=== PATIENT | female | born 1950 | race Two or more races ===

== ENCOUNTER 2017-01-20 15:31 | Emergency (ER) | payer OTHER ==
[~2017-01-20] VITALS: Ht 160 cm; Wt 108.9 kg
[~2017-01-20 15:31] MED LIST: ATEN-60 PO; ENAL20TA70 PO; GLIMEPIRIDE PO; METF100097 PO; OMEPRAZOLE CAP 20MG PO; SIMV-13 PO
[2017-01-20 16:58] LABS: Albumin 3.4 g/dL (3.4-5.0); Anion Gap 9 (5-15); BUN/Creatinine Ratio 17.9; Blood Urea Nitrogen 25 mg/dL (7-18); Calcium 8.5 mg/dL (8.5-10.1); Carbon Dioxide 27 mmol/L (21-32); Chloride 105 mmol/L (98-107); GFR African American 49 mL/min; GFR Non-African American 40 mL/min; Glucose 145 mg/dL (74-106); Magnesium 1.8 mg/dL (1.6-2.6); Sodium 141 mmol/L (136-145)
[2017-01-20 17:06] LABS: Alkaline Phosphatase 70 U/L (45-117); Aspartate Aminotransferase 11 U/L (15-37); Bilirubin, Total 0.2 mg/dL (0.2-1.0); Total Protein 6.7 g/dL (6.4-8.2)
[2017-01-20 17:13] LABS: Basophils # (auto) 0.1 uL; Basophils % (auto) 0.6 % (0.0-2.0); Eosinophils # (auto) 0.4 uL; Eosinophils % (auto) 3.2 % (0.0-7.0); Lymphocytes # (auto) 2.3 uL; Mean Corpuscular Hemoglobin 29.6 pg (28.0-32.0); Mean Corpuscular Hgb Conc. 32.5 g/dL (32.0-36.0); Mean Corpuscular Volume 91.1 fL (80.0-100.0); Mean Platelet Volume 10.1 fL (7.4-10.4); Monocytes # (auto) 1.3 uL; Monocytes % (auto) 11.3 % (0.0-12.0); Neutrophils # (auto) 7.8 uL; Neutrophils % (auto) 65.9 % (37.0-80.0); Platelet Count (auto) 218 10^3/uL (140-450); Red Cell Distribution Width 14.5 % (11.6-16.0); White Blood Cell 11.9 10^3/uL (4.4-10.8)
[2017-01-20 18:00] LABS: Urine Bilirubin Negative (Negative); Urine Blood Negative /uL (Negative); Urine Color Yellow (Yellow); Urine Glucose Normal (Normal); Urine Ketone Negative (Negative); Urine Nitrite Negative (Negative); Urine RBC <1 /hpf (0 - 4); Urine Urobilinogen Normal (Negative); Urine pH 5.5 (5.0-8.0)
[2017-01-20 20:34] VITALS: BP 128/71
== END 2017-01-20 20:56 | disposition home or self-care (01) ==
LOC: EDBD 15:31 → ER 15:41
CPT/HCPCS: 36415; 71020; 80053; 81001; 83735; 84484; 85025; 93005; 94761

== ENCOUNTER 2020-08-01 22:03 | Emergency (ER) | payer OTHER ==
[~2020-08-01] VITALS: Ht 170.2 cm; Wt 131.5 kg
[~2020-08-01 22:03] MED LIST changes: -ENAL20TA70 PO; +ENAL20TA8 PO
[2020-08-02 01:18] LABS: Basophils # (auto) 0.1 10 ^3/uL (0-0.2); Basophils % (auto) 0.7 % (0.0-2.0); Eosinophils # (auto) 0.2 10 ^3/uL (0-0.8); Eosinophils % (auto) 1.8 % (0.0-7.0); Hematocrit 36.5 % (36.0-46.0); Hemoglobin 11.7 g/dL (12.2-16.2); Lymphocytes # (auto) 1.4 10 ^3/uL (0.4-5.4); Lymphocytes % (auto) 12.1 % (10.0-50.0); Mean Corpuscular Hemoglobin 30.1 pg (28.0-32.0); Mean Corpuscular Hgb Conc. 32.2 g/dL (32.0-36.0); Mean Corpuscular Volume 93.7 fL (80.0-100.0); Neutrophils # (auto) 8.8 10 ^3/uL (1.6-8.6); Neutrophils % (auto) 76.4 % (37.0-80.0); Nucleated Red Blood Cells % 0.1 %; Platelet Count (auto) 181 10^3/uL (140-450); Red Blood Cells 3.89 10^6/uL (4.0-5.20); Red Cell Distribution Width 15.2 % (11.8-14.3); White Blood Cell 11.6 10^3/uL (4.4-10.8)
[2020-08-02 01:37] LABS: Albumin 3.3 g/dL (3.4-5.0); Calcium 8.4 mg/dL (8.5-10.1); Potassium 4.9 mmol/L (3.5-5.1)
[2020-08-02 01:40] LABS: BUN/Creatinine Ratio 11.2
[2020-08-02 01:42] LABS: Bilirubin, Total 0.8 mg/dL (0.2-1.0); Total Protein 6.3 g/dL (6.4-8.2)
[2020-08-02 02:28] VITALS: BP 133/51
== END 2020-08-02 03:04 | disposition home or self-care (01) ==
LOC: EDBD 22:03 → ER 22:09
DX: E11.649 Type 2 diabetes mellitus with hypoglycemia without coma (principal); T38.3X5A Adverse effect of insulin and oral hypoglycemic [antidiabetic] drugs, initial encounter; K21.9 Gastro-esophageal reflux disease without esophagitis; E78.5 Hyperlipidemia, unspecified; I10 Essential (primary) hypertension; Y92.89 Other specified places as the place of occurrence of the external cause; Z90.49 Acquired absence of other specified parts of digestive tract; Z79.899 Other long term (current) drug therapy
CPT/HCPCS: 36415; 80053; 82010; 82962; 85025

== ENCOUNTER 2022-05-19 20:04 | Emergency (ER) | payer OTHER ==
[~2022-05-19] VITALS: Ht 162.6 cm; Wt 100.0 kg
[2022-05-19 20:22] VITALS: BP 169/79
[2022-05-20] MEDS ORDERED: ONDANSETRON ODT 4 MG TAB PO ONE (01:30)
[2022-05-20] MEDS ORDERED: HYDROcodone-ACET 5/325MG TAB PO ONE (01:30)
== END 2022-05-20 01:42 | disposition home or self-care (01) ==
LOC: EDBD 20:04 → ER 20:04
DX: M25.562 Pain in left knee (principal); J45.909 Unspecified asthma, uncomplicated; K21.9 Gastro-esophageal reflux disease without esophagitis; E78.5 Hyperlipidemia, unspecified; I10 Essential (primary) hypertension; Z88.1 Allergy status to other antibiotic agents; Z90.49 Acquired absence of other specified parts of digestive tract; W01.0XXA Fall on same level from slipping, tripping and stumbling without subsequent striking against object, initial encounter; Y93.01 Activity, walking, marching and hiking; Y92.098 Other place in other non-institutional residence as the place of occurrence of the external cause; Y99.8 Other external cause status
CPT/HCPCS: 73562; 73630; 99284; Q0162

== ENCOUNTER 2024-05-23 03:47 | Inpatient (IN) | payer BC, OTHER ==
[~2024-05-23] VITALS: Ht 162.6 cm; Wt 95.4 kg
[~2024-05-23 03:47] MED LIST changes: +ENAL1TAB48 PO; -ENAL20TA8 PO; -SIMV-13 PO; +SIMV40TA18 PO
[2024-05-23 04:15] VITALS: PULSE 140; RESP 19; O2SAT 95
[2024-05-23] MEDS: METOPROLOL TARTRATE 1MG/1ML-5ML VIAL IV SCH (04:35)
[2024-05-23 04:44] LABS: Urine Bacteria None Seen /hpf (None Seen)
[2024-05-23 04:54] LABS: Basophils # (auto) 0.1 10 ^3/uL (0-0.2); Basophils % (auto) 1.2 % (0.0-2.0); Eosinophils # (auto) 0.2 10 ^3/uL (0-0.8); Eosinophils % (auto) 1.9 % (0.0-7.0); Hematocrit 42.1 % (36.0-46.0); Hemoglobin 13.8 g/dL (12.2-16.2); Mean Corpuscular Hemoglobin 29.4 pg (28.0-32.0); Mean Corpuscular Hgb Conc. 32.7 g/dL (32.0-36.0); Mean Corpuscular Volume 89.8 fL (80.0-100.0); Monocytes # (auto) 1.1 10 ^3/uL (0-1.3); Monocytes % (auto) 9.2 % (0.0-12.0); Neutrophils # (auto) 8.2 10 ^3/uL (1.6-8.6); Neutrophils % (auto) 70.7 % (37.0-80.0); Platelet Count (auto) 194 10^3/uL (140-450); Red Blood Cells 4.69 10^6/uL (4.0-5.20); Red Cell Distribution Width 14.5 % (11.8-14.3); White Blood Cell 11.6 10^3/uL (4.4-10.8)
[2024-05-23 05:01] LABS: Urine Blood Negative /uL (Negative); Urine Clarity Clear (Clear); Urine Color Colorless (Yellow); Urine Protein, UAD Negative (Negative); Urine Urobilinogen Normal (Negative); Urine WBC 14 /hpf (0 - 5); Urine WBC Clumps PRESENT /hpf (None Seen); Urine pH 5.5 (5.0-9.0)
[2024-05-23 05:11] LABS: Albumin 3.8 g/dL (3.2-4.8); Alkaline Phosphatase 72 U/L (46-116); Aspartate Aminotransferase < 8 U/L (13-40); BUN/Creatinine Ratio 15.6 (10.0-20.0); Blood Urea Nitrogen 27 mg/dL (9-23); Calcium 8.7 mg/dL (8.7-10.4); Chloride 109 mmol/L (98-107); Glucose 131 mg/dL (74-106); Sodium 137 mmol/L (136-145)
[2024-05-23 05:12] LABS: Bilirubin, Total 0.6 mg/dL (0.2-1.0); INR 1.08 (0.9-1.15); Partial Thromboplastin Time 29.7 SEC (24.5-34.5); Prothrombin Time 11.4 sec (9.3-11.8); Total Protein 6.1 g/dL (5.7-8.2)
[2024-05-23 05:15] LABS: Alanine Aminotransferase < 9 U/L (7-40)
[2024-05-23 05:22] LABS: Anion Gap 9 (5-15); Carbon Dioxide 19 mmol/L (20-30)
[2024-05-23] MEDS: AMIODARONE BOLUS KIT 100 ML IV ONE (06:26)
[2024-05-23] MEDS ORDERED: NITROGLYCERIN 0.4 MG SL TAB SL PRN (06:30)
[2024-05-23] MEDS ORDERED: ONDANSETRON HCL 4 MG/2 ML VIAL IV PRN (06:30)
[2024-05-23] MEDS ORDERED: MORPHINE SULFATE INJ 2 MG/ml SYRG IV PRN (06:30)
[2024-05-23] MEDS: AMIODARONE 450mg/250ml AE 250 ML IV SCH ×2 (06:43→12:33)
[2024-05-23] MEDS: SOD CHL 0.45% 1,000 ML IV ONE (06:44)
[2024-05-23] MEDS ORDERED: DEXTROSE (50%) 50ML SYRG IV PRN (06:45)
[2024-05-23] MEDS: InsuLIN REG 1unit/0.01ml Soln (100units/ml) SC SCH (07:00)
[2024-05-23 07:10] VITALS: PULSE 106; RESP 14; O2SAT 98
[2024-05-23] MEDS: ACCU-CHEK COMFORT CURVE STRIP VI SCH (07:13)
[2024-05-23] MEDS: SODIUM CHLORIDE 0.9% 1,000 ML IV STA (10:07)
[2024-05-23 15:46] VITALS: PULSE 119; RESP 20; O2SAT 98
[2024-05-23 17:00] VITALS: BP 110/59; PULSE 49; RESP 18; TEMP 97.6; O2SAT 100
[2024-05-23] MEDS: RIVAROXABAN 20 MG TAB PO SCH (18:04)
[2024-05-23 20:00] VITALS: PULSE 59; RESP 18; O2SAT 98
[2024-05-23 21:00] VITALS: BP 100/51; PULSE 61; RESP 18; TEMP 98.5; O2SAT 96
[2024-05-24 00:51] VITALS: BP 100/42; PULSE 61; RESP 16; TEMP 98.4; O2SAT 96
[2024-05-24 04:48] VITALS: BP 110/47; PULSE 61; RESP 17; TEMP 98.5; O2SAT 96
[2024-05-24 06:25] LABS: Basophils # (auto) 0.1 10 ^3/uL (0-0.2); Basophils % (auto) 0.9 % (0.0-2.0); Eosinophils # (auto) 0.2 10 ^3/uL (0-0.8); Eosinophils % (auto) 3.1 % (0.0-7.0); Hematocrit 38.5 % (36.0-46.0); Hemoglobin 12.9 g/dL (12.2-16.2); Lymphocytes # (auto) 1.8 10 ^3/uL (0.4-5.4); Lymphocytes % (auto) 22.5 % (10.0-50.0); Mean Corpuscular Hemoglobin 29.4 pg (28.0-32.0); Mean Corpuscular Hgb Conc. 33.4 g/dL (32.0-36.0); Mean Corpuscular Volume 88.1 fL (80.0-100.0); Monocytes # (auto) 0.7 10 ^3/uL (0-1.3); Monocytes % (auto) 9.6 % (0.0-12.0); Neutrophils % (auto) 63.9 % (37.0-80.0); Platelet Count (auto) 171 10^3/uL (140-450); Red Blood Cells 4.37 10^6/uL (4.0-5.20); Red Cell Distribution Width 14.2 % (11.8-14.3); White Blood Cell 7.8 10^3/uL (4.4-10.8)
[2024-05-24 06:38] LABS: Albumin 3.4 g/dL (3.2-4.8); Alkaline Phosphatase 55 U/L (46-116); Anion Gap 5 (5-15); Aspartate Aminotransferase < 8 U/L (13-40); Bilirubin, Total 0.8 mg/dL (0.2-1.0); Blood Urea Nitrogen 30 mg/dL (9-23); Calcium 8.7 mg/dL (8.7-10.4); Carbon Dioxide 24 mmol/L (20-30); Chloride 109 mmol/L (98-107); Glucose 111 mg/dL (74-106); Potassium 4.2 mmol/L (3.5-5.1); Sodium 138 mmol/L (136-145); Total Protein 5.6 g/dL (5.7-8.2)
[2024-05-24 06:42] LABS: Alanine Aminotransferase < 9 U/L (7-40)
[2024-05-24 08:00] VITALS: PULSE 60
[2024-05-24 08:30] VITALS: BP 123/52; PULSE 63; RESP 19; TEMP 98.4; O2SAT 93
[2024-05-24] MEDS: AMIODARONE HCL 200 MG TAB PO SCH (09:37)
[2024-05-24] MEDS ORDERED: AMIO200T13 PO (11:38)
[2024-05-24 12:30] VITALS: BP_SYST 131; BP_SYST 157; BP_DIAS 54; BP_DIAS 91; PULSE 62; RESP 18; TEMP 98.9; O2SAT 95
== END 2024-05-24 14:32 | disposition home or self-care (01) | DRG 309 ==
LOC: EDBD 03:47 → ER 03:58 → TELE 06:30 → TELE-WESTW 15:12
PROVIDERS: ADMIT Internal Medicine; ATTEND Student in an Organized Health Care Education/Training Program
DX: I48.19 Other persistent atrial fibrillation (principal); I13.0 Hypertensive heart and chronic kidney disease with heart failure and stage 1 through stage 4 chronic kidney disease, or unspecified chronic kidney disease; E78.5 Hyperlipidemia, unspecified; I25.10 Atherosclerotic heart disease of native coronary artery without angina pectoris; E11.22 Type 2 diabetes mellitus with diabetic chronic kidney disease; E66.01 Morbid (severe) obesity due to excess calories; N18.9 Chronic kidney disease, unspecified; K21.9 Gastro-esophageal reflux disease without esophagitis; M10.9 Gout, unspecified; I49.9 Cardiac arrhythmia, unspecified; J44.9 Chronic obstructive pulmonary disease, unspecified; I50.9 Heart failure, unspecified; Z79.84 Long term (current) use of oral hypoglycemic drugs; Z88.1 Allergy status to other antibiotic agents; Z90.49 Acquired absence of other specified parts of digestive tract; I25.2 Old myocardial infarction; Z83.3 Family history of diabetes mellitus; Z82.49 Family history of ischemic heart disease and other diseases of the circulatory system; Z68.36 Body mass index [BMI] 36.0-36.9, adult; I95.9 Hypotension, unspecified
CPT/HCPCS: 36415; 71045; 76536; 80053; 81001; 82962; 83735; 83880; 84439; 84443; 84484; 85025; 85610; 85730; 93005; 93306; 96361; 96365; 96375; 99291; G0378; J1815

== ENCOUNTER 2025-03-26 08:56 | Inpatient (IN) | payer OTHER ==
[~2025-03-26] VITALS: Ht 160 cm; Wt 90.4 kg
[~2025-03-26 08:56] MED LIST changes: +AMIO200T13 PO
--- NOTE | 2025-03-26 09:10 | ECG ---
[facility] Test Date: 2025-03-26 Test Time: 09:02:11 Pat Name: LUH DAI Department: ED Room: Gender: F Fha Underwriter: : 1950 Requested By: LINDSEY PEDRAZA Order Number: [id number] Reading MD: Measurements Intervals [place] Rate: 140 P: -6 NE: 162 QRS: -17 QRSD: 140 T: -1 QT: 307 QTc: 469 Interpretive Statements Sinus tachycardia with irregular rate Right bundle branch block Please click the below link to view image of tracing.
--- NOTE | 2025-03-26 09:22 | ED.PDOC ---
HPI Comments 74-year-old female with PMHx OH, A-Fib, HLD, DM brought in by EMS presents with a chief complaint of chest pain x onset 0800 this morning. Patient states that her pain is localized to her right sternum, nonradiating, describes as heavy, and rates her pain a 7/10. Patient also states that she is feeling lightheaded. Patient was found to be in A-Fib RVR per EMS at rate of 104. EKG upon arrival to ER shows ST with rate of 140. Chief Complaint: Chest Pain Time Seen by MD: 09:16 Primary Care Provider: JERRYK Reviewed Notes: Medications, Allergies Allergies: Coded Allergies: Cephalexin (Verified Allergy, Unknown, 08/01/20) Home Meds Active Scripts Amiodarone HCl (Amiodarone HCl) 200 Mg Tab, 400 MG PO Q12HR for 30 Days, #120 TAB 1 Refill Take 400mg twice a day for 7 days, then 200mg twice a day thereafter. Prov:FLORENCIO GOMEZ DO 05/24/24 Reported Medications [Gubjfcjj15 Mg] (Atenolol) 25 MG TAB No Conflict Check, 25 MG PO DAILY 05/30/13 [Enalapril Malea20 Mg] (Enalapril Maleate) 20 MG TAB No Conflict Check, 20 MG PO DAILY 05/30/13 [Omeprazole Cap 20MG] No Conflict Check, 20 MG PO DAILY 05/30/13 Simvastatin (Simvastatin) 40 Mg Tab, 40 MG PO DAILY, 0 Refills 06/21/10 [Glimpeiride] No Conflict Check, 4 MG PO DAILY, 0 Refills 06/21/10 Metformin Hydrochloride (Fortamet) 1,000 Mg Tab, 1000 MG PO BID, 0 Refills 06/21/10 Information Source: Patient Mode of Arrival: EMS Severity: Moderate Timing: Hours Duration: Since onset Prehospital treatment: 12 Lead EKG, ASA, Visual Design Lead Location: Chest (R) Radiation: No Radiation Quality: Heavy Onset: At Rest Cardiac Risk Factors: Hyperlipidemia, Diabetes History of: OH Past Medical History PAST MEDICAL HISTORY: Anemia, Arthritis, Asthma, DM, GERD, Gout, High Lipids, HTN, OH Surgical History: Cholecystectomy CENTER MEDICAL SPECIALIST History: No Pertinent [employer]IST History Family History Family History: Family hx of DM, Family hx of heart fatuma, Family hx of HTN Social History Smoker: Non-Smoker Alcohol: Denies ETOH Use Drugs: Denies Drug Use Lives In: Home Constitutional: denies: chills, diaphoresis, fatigue, fever, malaise, sweats, weakness, others EENTM: denies: blurred vision, double vision, ear bleeding, ear discharge, ear drainage, ear pain, ear ringing, eye pain, eye redness, hearing loss, mouth pain, mouth swelling, nasal discharge, nose bleeding, nose congestion, nose pain, photophobia, tearing, throat pain, throat swelling, voice changes, others Respiratory: denies: cough, hemoptysis, orthopnea, SOB at rest, shortness of breath, SOB with excertion, stridor, wheezing, others Cardiovascular: reports: chest pain, lightheadedness; denies: dizzy spells, diaphoresis, Dyspnea on exertion, edema, irregular heart beat, left arm pain, palpitations, PND, syncope, others Gastrointestinal: denies: abdomen distended, abdominal pain, blood streaked bowels, constipated, diarrhea, dysphagia, difficulty swallowing, hematemesis, melena, nausea, poor appetite, poor fluid intake, rectal bleeding, rectal pain, vomiting, others Genitourinary: denies: abnormal vagina bleeding, burning, dyspareunia, dysuria, flank pain, frequency, hematuria, incontinence, pain, , vagina discharge, urgency, others Neurological: denies: dizziness, fainting, headache, left sided numbness, left sided weakness, numbness, paresthesia, pre-existing deficit, right sided numbness, right sided weakness, seizure, speech problems, tingling, tremors, we akness, others Musculoskeletal: denies: back pain, gout, joint pain, joint swelling, muscle pain, muscle stiffness, neck pain, others Integumetry: denies: bruises, change in color, change in hair/nails, dryness, laceration, lesions, lumps, rash, wounds, others Allergic/Immunocompromised: denies: Difficulty Healing, Frequent Infections, Hives, Itching, others Hematologic/Lymphatic: denies: anemia, blood clots, easy bleeding, easy bruising, swollen glands, others Endocrine: denies: excessive hunger, excessive sweating, excessive thirst, excessive urination, flushing, intolerance to cold, intolerance to heat, unexplained weight gain, unexplained weight loss, others Psychiatric: denies: anxiety, bipolar disorder, depression, hopeless, panic disorder, schizophrenia, sleepless, suicidal, others All Other Systems: Reviewed and Negative Physical Exam General Appearance: Moderate Distress, Normal HEENT: Normal ENT Inspection, Pharynx Normal, TMs Normal Neck: Full Range of Motion, Non-Tender, Normal, Normal Inspection Respiratory: Chest Non-Tender, Lungs Clear, No Accessory Muscle Use, No Respiratory Distress, Normal Breath Sounds Cardiovascular: Irregular, No Edema, No JVD, No Murmur, No Gallop, Normal Peripheral Pulses, Tachycardia Breast Exam: Deferred Gastrointestinal: No Organomegaly, Non Tender, No Pulsatile Mass, Normal Bowel Sounds, Soft Genitalia: Deferred Pelvic: Deferred Rectal: Deferred Extremities: No calf tenderness, Normal capillary refill, Normal inspection, Normal range of motion, Non-tender, No pedal edema Musculoskeletal : Apperance: Normal Neurologic: Alert, consulting marine engineer II-XII nml as Tested, No Motor Deficits, Normal Affect, Normal Mood, No Sensory Deficits Cerebellar Function: NOT DONE Reflexes: NOT DONE Skin: Dry, Normal Color, Warm Peripheral Pulses: 3+ Radial (R), 3+ Radial (L) Lymphatic: No Adenopathy EKG EKG : Pulse Rate (adult): 140 [place]: Normal Cardiac Rhythm: ST Block: None Hypertrophy: None ST: Normal Was a procedure done? Was a procedure done?: No CP Differential Dx Differential Diagnosis: A-fib, A-Flutter, Angina, Anxiety / Panic Attack, Atrial Dysrhythmia, Electrolyte Disorder X-Ray, Labs, Meds, VS Vital Signs Date Time Temp Pulse Resp B/P (MAP) Pulse Ox O2 Delivery O2 Flow Rate FiO2 03/26/25 12:00 121 03/26/25 12:00 123 21 140/63 (88) 97 03/26/25 11:34 120 03/26/25 10:01 130 03/26/25 09:30 120 20 98 Room Air* 0 21 03/26/25 09:22 140 03/26/25 09:20 98.2 120 19 94/56 (69) 97 98.2 03/26/25 09:02 140 03/26/25 09:02 98.9 140 16 146/93 (110) 98 98.9 Lab Test 03/26/25 10:37 03/26/25 09:38 03/26/25 09:25 Range/Units Troponin I High Sensitivity 6 6 </=34 ng/L White Blood Count 6.7 4.4-10.8 10^3/uL Red Blood Count 4.51 4.0-5.20 10^6/uL Hemoglobin 13.8 12.2-16.2 g/dL Hematocrit 40.8 36.0-46.0 % Mean Corpuscular Volume 90.5 80.0-100.0 fL Mean Corpuscular Hemoglobin 30.7 28.0-32.0 pg Mean Corpuscular Hemoglobin Concent 33.9 32.0-36.0 g/dL Red Cell Distribution Width 13.8 11.8-14.3 % Platelet Count 234 140-450 10^3/uL Mean Platelet Volume 9.2 6.9-10.8 fL Neutrophils (%) (Auto) 69.2 37.0-80.0 % Lymphocytes (%) (Auto) 17.4 10.0-50.0 % Monocytes (%) (Auto) 8.8 0.0-12.0 % Eosinophils (%) (Auto) 2.6 0.0-7.0 % Basophils (%) (Auto) 2.0 0.0-2.0 % Neutrophils # (Auto) 4.6 1.6-8.6 10 ^3/uL Lymphocytes # (Auto) 1.2 0.4-5.4 10 ^3/uL Monocytes # (Auto) 0.6 0-1.3 10 ^3/uL Eosinophils # (Auto) 0.2 0-0.8 10 ^3/uL Basophils # (Auto) 0.1 0-0.2 10 ^3/uL Nucleated Red Blood Cells 0.1 % Sodium Level 141 136-145 mmol/L Potassium Level 4.5 3.5-5.1 mmol/L Chloride Level 108 H 98-107 mmol/L Carbon Dioxide Level 23 20-31 mmol/L Anion Gap 10 5-15 Blood Urea Nitrogen 35 H 9-23 mg/dL Creatinine 1.85 H 0.550-1.02 mg/dL Glomerular Filtration Rate Calc 28 >90 mL/min BUN/Creatinine Ratio 18.9 10.0-20.0 Serum Glucose 171 H 74-106 mg/dL Hemoglobin A1c 6.8 H <5.7 % A1C Calcium Level 9.8 8.7-10.4 mg/dL Magnesium Level 2.2 1.6-2.6 mg/dL B-Type Natriuretic Peptide 112.44 0-100 pg/mL Triglycerides Level 288 H < 150 mg/dL Cholesterol Level 237 H < 200 mg/dL LDL Cholesterol 150 H < 100 mg/dL HDL Cholesterol 44 40-59 mg/dL Thyroid Stimulating Hormone (TSH) 1.21 0.55-4.78 uIU/mL Urine Color Light-yellow Yellow Urine Clarity Clear Clear Urine pH 5.5 5.0-9.0 Urine Specific [place] 1.012 1.001-1.035 Urine Protein Negative Negative Urine Ketones Negative Negative Urine Blood Negative Negative /uL Urine Nitrite Negative Negative Urine Bilirubin Negative Negative Urine Urobilinogen Normal Negative mg/dL Urine Leukocyte Esterase Trace Negative /uL Urine RBC <1 0 - 4 /hpf Urine Microscopic WBC 2 0-5 /HPF Urine Squamous Epithelial Cells Few <5 /hpf Urine Bacteria None seen None Seen /hpf Urine Glucose Normal Normal mg/dL Current Medications Medications (Trade) Dose Ordered Sig/Love Route Start Time Stop Time Status Last Admin Amiodarone HCl 100 ml @ 600 mls/hr ONCE ONCE IV 03/26/25 09:30 03/26/25 09:39 DC 03/26/25 10:25 Digoxin (Lanoxin Tablet) 0.25 mg ONCE ONCE PO 03/26/25 11:00 03/26/25 11:01 DC 03/26/25 11:34 Patient alert. Atrial fibrillation. Started amiodarone. Saturation pristine on room air. Blood sugar slightly elevated. Kidney function elevated. [facility]. Continue to monitor. Time of 1ST Reevaluation: 09:46 Reevaluation 1ST: Unchanged Patient Education/Counseling: Diagnosis, Treatment, Need For Follow Up Family Education/Counseling: No Family Present SEPSIS Sepsis Screen Date sepsis recognized/suspect: Mar 26, 2025 Time Sepsis recognized/suspect: 901 Recent Procedure: No On Antibiotic Therapy: No Respiratory Rate >20: No Heart Rate >90: Yes Temp<36 C (96.8 F) or >38.3 C: No SBP <90 or MAP <65 mmHG: No New Acute Mental Status Change: No Is the patient on CPAP, BIPAP,: No Physician Orders Electrocardigram (03/26/25 12:09) Chest Portable (03/26/25 09:27) Cardiac Diet-2gna,Lofat,Lochol (03/26/25 Lunch) Vital Signs Date Time Temp Pulse Resp B/P (MAP) Pulse Ox O2 Delivery O2 Flow Rate FiO2 03/26/25 12:00 121 03/26/25 12:00 123 21 140/63 (88) 97 03/26/25 11:34 120 03/26/25 10:01 130 03/26/25 09:30 120 20 98 Room Air* 0 21 03/26/25 09:22 140 03/26/25 09:20 98.2 120 19 94/56 (69) 97 98.2 03/26/25 09:02 140 03/26/25 09:02 98.9 140 16 146/93 (110) 98 98.9 Laboratory Tests Test 03/26/25 09:38 White Blood Count 6.7 10^3/uL (4.4-10.8) Medications Medications Dose Ordered Sig/Love Route Start Time Stop Time Status Last Admin Dose Admin Amiodarone HCl 100 ml @ 600 mls/hr ONCE ONCE IV 03/26/25 09:30 03/26/25 09:39 DC 03/26/25 10:25 Digoxin 0.25 mg ONCE ONCE PO 03/26/25 11:00 03/26/25 11:01 DC 03/26/25 11:34 Departure 1 Departure Time of Disposition: 10:48 Impression: Primary Impression: Atrial fibrillation Qualified Codes: I48.0 - Paroxysmal atrial fibrillation Additional Impressions: Chronic kidney disease stage 3 Diabetes uncontrolled Disposition: ADMITTED INPATIENT Admit to: Med Surg Condition: Guarded Critical Care Note Critical Care Time?: Yes (90 min-critical care time only) Critical care comment: Atrial fibrillation started amiodarone Stability Stability form required: No Heart Score Heart Score: Heart Score Response (Comments) Value History Slightly Suspicious 0 EKG Normal 0 Age >65 2 Risk Factors >3 or Hx ASHD 2 Troponin Normal limit 0 Total 4 I personally scribed for LINDSEY PEDRAZA MD ([email or web address]) on 03/26/25 at 09:22. Electronically submitted by Leo Holt [email or web address]). LINDSEY PEDRAZA MD Mar 26, 2025 09:22
[2025-03-26 09:30] VITALS: PULSE 120; RESP 20; O2SAT 98
[2025-03-26 09:37] LABS: Urine Bacteria None Seen /hpf (None Seen)
[2025-03-26 09:46] LABS: Urine Blood Negative /uL (Negative); Urine Clarity Clear (Clear); Urine Color Light-Yellow (Yellow); Urine Protein, UAD Negative (Negative); Urine Specific Gravity 1.012 (1.001-1.035); Urine Squamous Epithelial Cell FEW /hpf (<5); Urine Urobilinogen Normal (Negative); Urine WBC 2 /HPF (0-5); Urine pH 5.5 (5.0-9.0)
[2025-03-26 10:00] LABS: Basophils # (auto) 0.1 10 ^3/uL (0-0.2); Eosinophils # (auto) 0.2 10 ^3/uL (0-0.8); Eosinophils % (auto) 2.6 % (0.0-7.0); Hematocrit 40.8 % (36.0-46.0); Hemoglobin 13.8 g/dL (12.2-16.2); Lymphocytes # (auto) 1.2 10 ^3/uL (0.4-5.4); Lymphocytes % (auto) 17.4 % (10.0-50.0); Mean Corpuscular Hemoglobin 30.7 pg (28.0-32.0); Mean Corpuscular Hgb Conc. 33.9 g/dL (32.0-36.0); Mean Corpuscular Volume 90.5 fL (80.0-100.0); Monocytes # (auto) 0.6 10 ^3/uL (0-1.3); Monocytes % (auto) 8.8 % (0.0-12.0); Neutrophils # (auto) 4.6 10 ^3/uL (1.6-8.6); Neutrophils % (auto) 69.2 % (37.0-80.0); Nucleated Red Blood Cells % 0.1 %; Platelet Count (auto) 234 10^3/uL (140-450); Red Blood Cells 4.51 10^6/uL (4.0-5.20); Red Cell Distribution Width 13.8 % (11.8-14.3); White Blood Cell 6.7 10^3/uL (4.4-10.8)
--- NOTE | 2025-03-26 10:04 | ECG ---
[facility] Test Date: 2025-03-26 Test Time: 10:01:56 Pat Name: LUH DAI Department: ED Room: Gender: F Bag Washer: : 1950 Requested By: LINDSEY PEDRAZA Order Number: [id number] Reading MD: Measurements Intervals [place] Rate: 130 P: 0 MS: 0 QRS: 87 QRSD: 135 T: 48 QT: 355 QTc: 522 Interpretive Statements Atrial fibrillation Paired ventricular premature complexes Right bundle branch block Borderline ST elevation, lateral leads Please click the below link to view image of tracing.
--- NOTE | 2025-03-26 10:13 | DVH ---
AP portable chest CLINICAL INDICATION: sob FINDINGS: Heart size is enlarged. There are no infiltrates or effusions. IMPRESSION: 1. No acute cardiopulmonary pathology.
[2025-03-26] MEDS: AMIODARONE BOLUS KIT 100 ML IV ONE (10:25)
[2025-03-26 10:30] LABS: Potassium 4.5 mmol/L (3.5-5.1); Sodium 141 mmol/L (136-145)
[2025-03-26] MEDS: AMIODARONE 360mg/200mL PREMIX 200 ML IV ONE (10:30)
[2025-03-26 10:31] LABS: Chloride 108 mmol/L (98-107)
[2025-03-26 10:32] LABS: Calcium 9.8 mg/dL (8.7-10.4)
[2025-03-26 10:37] LABS: BUN/Creatinine Ratio 18.9 (10.0-20.0)
[2025-03-26 10:39] LABS: Blood Urea Nitrogen 35 mg/dL (9-23); Glucose 171 mg/dL (74-106)
[2025-03-26 10:48] LABS: Anion Gap 10 (5-15); Carbon Dioxide 23 mmol/L (20-31)
[2025-03-26] MEDS: DIGOXIN 0.125 MG TAB PO ONE (11:34)
[2025-03-26] MEDS ORDERED: ONDANSETRON HCL 4 MG/2 ML VIAL IV PRN (14:15)
[2025-03-26] MEDS ORDERED: ACETAMINOPHEN 325 MG TAB PO PRN (14:15)
[2025-03-26] MEDS ORDERED: MORPHINE SULFATE INJ 2 MG/ml SYRG IV PRN ×2 (14:15)
[2025-03-26] MEDS ORDERED: NITROGLYCERIN 0.4 MG SL TAB SL PRN (14:15)
[2025-03-26] MEDS ORDERED: HYDROcodone-ACET 5/325MG TAB PO PRN (14:15)
--- NOTE | 2025-03-26 14:15 | DVHHP2 ---
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 The chest pain is described as a heavy, pressure like sensation localized to the mid chest, nonradiating and associated with shortness of breath and heart palpitations. In the ED, she was found to be in atrial fibrillation with rapid ventricular response and was started on amiodarone drip. Repeat 12 lead ECG showed conversion to normal sinus rhythm with right bundle-branch block. She reports being currently on a DOAC and Multaq. Additionally, she recently underwent a nuclear test with her grocery store bagger, Dr. Beltran, which reportedly showed abnormal findings. Of note, she had a brief prior enrollment in hospice but is now designated as full code. Past Medical History Stated in HPI Past Surgical History Cholecystectomy Family History Reviewed, non-contributory to the management of this case. Past Social History The patient lives at home, denies smoking, alcohol or illicit drugs abuse. Review of Systems Constitutional: Yes: Malaise; No: Fever, Chills, Sweats, Weakness, Other Eyes: No: Pain, Vision change, Conjunctivae inflammation, Eyelid inflammation, Other, Redness ENT: No: Ear pain, Ear discharge, Nose pain, Nose discharge, Nose congestion, Mouth pain, Mouth swelling, Throat pain, Throat swelling, Other Respiratory: Shortness of breath, SOB with excertion; No: Cough, Dry, Wheezing, Hemoptysis, Pleuritic Pain, Sputum, Wheezing, Other Cardiovascular: Chest Pain; No: Palpitations, Orthopnea, Paroxysmal Noc. Dyspnea, Edema, Lt Headedness, Other Gastrointestinal: No: Nausea, Vomiting, Abdominal Pain, Diarrhea, Constipation, Melena, Hematochezia, Other Genitourinary: No Dysuria, No Frequency, No Incontinence, No Hematuria, No Retention, No Other Musculoskeletal: No: other, neck pain, shoulder pain, arm pain, back pain, hand pain, leg pain, foot pain Skin: No: Rash, Lesions, Jaundice, Bruising, Other Neurological: No: Weakness, Numbness, Incoordination, Change in speech, Confusi on, Seizures, Other Allergies: Coded Allergies: Cephalexin (Verified Allergy, Unknown, 08/01/20) Exam Vital Signs Vital Signs Date Time Temp Pulse Resp B/P (MAP) Pulse Ox O2 Delivery O2 Flow Rate FiO2 03/26/25 12:00 121 03/26/25 12:00 21 140/63 (88) 97 03/26/25 09:30 Room Air* 0 21 03/26/25 09:20 98.2 98.2 General Appearance: Alert, Oriented X3, Cooperative, No acute distress HEENT: Atraumatic, PERRLA, EOMI, Mucous membr. moist/pink Respiratory: Clear to auscultation, Normal air movement Cardiovascular: Regular rate, Normal S1, Normal S2, Other (Converted to sinus rhythm) Abdominal: Normal bowel sounds, Soft, No tenderness, No hepatospenomegaly Extremities: No clubbing, No cyanosis, No edema, Normal pulses Skin: No rashes Neuro: Normal gait, Strength at 5/5 X4 ext, Normal tone Psych/Mental Status: Mental status NL Labs/Xrays Labs Test 03/26/25 10:37 03/26/25 09:38 03/26/25 09:25 Range/Units Troponin I High Sensitivity 6 </=34 ng/L White Blood Count 6.7 4.4-10.8 10^3/uL Red Blood Count 4.51 4.0-5.20 10^6/uL Hemoglobin 13.8 12.2-16.2 g/dL Hematocrit 40.8 36.0-46.0 % Mean Corpuscular Volume 90.5 80.0-100.0 fL Mean Corpuscular Hemoglobin 30.7 28.0-32.0 pg Mean Corpuscular Hemoglobin Concent 33.9 32.0-36.0 g/dL Red Cell Distribution Width 13.8 11.8-14.3 % Platelet Count 234 140-450 10^3/uL Mean Platelet Volume 9.2 6.9-10.8 fL Neutrophils (%) (Auto) 69.2 37.0-80.0 % Lymphocytes (%) (Auto) 17.4 10.0-50.0 % Monocytes (%) (Auto) 8.8 0.0-12.0 % Eosinophils (%) (Auto) 2.6 0.0-7.0 % Basophils (%) (Auto) 2.0 0.0-2.0 % Neutrophils # (Auto) 4.6 1.6-8.6 10 ^3/uL Lymphocytes # (Auto) 1.2 0.4-5.4 10 ^3/uL Monocytes # (Auto) 0.6 0-1.3 10 ^3/uL Eosinophils # (Auto) 0.2 0-0.8 10 ^3/uL Basophils # (Auto) 0.1 0-0.2 10 ^3/uL Nucleated Red Blood Cells 0.1 % Sodium Level 141 136-145 mmol/L Potassium Level 4.5 3.5-5.1 mmol/L Chloride Level 108 H 98-107 mmol/L Carbon Dioxide Level 23 20-31 mmol/L Anion Gap 10 5-15 Blood Urea Nitrogen 35 H 9-23 mg/dL Creatinine 1.85 H 0.550-1.02 mg/dL Glomerular Filtration Rate Calc 28 >90 mL/min BUN/Creatinine Ratio 18.9 10.0-20.0 Serum Glucose 171 H 74-106 mg/dL Calcium Level 9.8 8.7-10.4 mg/dL Urine Color Light-yellow Yellow Urine Clarity Clear Clear Urine pH 5.5 5.0-9.0 Urine Specific [place] 1.012 1.001-1.035 Urine Protein Negative Negative Urine Ketones Negative Negative Urine Blood Negative Negative /uL Urine Nitrite Negative Negative Urine Bilirubin Negative Negative Urine Urobilinogen Normal Negative mg/dL Urine Leukocyte Esterase Trace Negative /uL Urine RBC <1 0 - 4 /hpf Urine Microscopic WBC 2 0-5 /HPF Urine Squamous Epithelial Cells Few <5 /hpf Urine Bacteria None seen None Seen /hpf Urine Glucose Normal Normal mg/dL PROCEDURE(s): CXRP - CHEST PORTABLE REASON: sob ORDER NUMBER(s): [id number], ACCESSION NUMBER(s): [id number] AP portable chest CLINICAL INDICATION: sob FINDINGS: Heart size is enlarged. There are no infiltrates or effusions. IMPRESSION: 1. No acute cardiopulmonary pathology. Assessment/Plan Assessment/Plan # Afib with RVR on Xarelto and Multaq, ?paraoxymal afib # ? hx of recent nuc test with abnormal findings with Dr Beltran # HFmrEF (EF 40-45% - 04/2024) Admit to telemetry unit Currently on amiodarone drip Heart rate in 60's noted converted to sinus rhythm, Repeated 12 EKG sinus rhythm 60 with RBBB Discontinuing amiodarone drip, transitioning to p.o. amnio. DC Multaq Cardiology consult Therapeutic Lovenox until seen by grocery store bagger Check electrolytes and replete as needed # REHAN on CKD 4 soft IVF Monitor Avoid nephrotoxins # hypertension Atenolol Monitor # diabetes type 2 Insulin sliding scale Check A1c # hyperlipidemia Statins lipid panel # obesity Lifestyle modification counseled # recent hospice revocation Currently full code DVT prophylaxis Medical plan discussed with patient and RN Plan discussed with: Patient My Orders Orders - CLINTON GARCIA Procedure Category Date Status Time Admit ADMIT 03/26/25 Transmitted 14:05 Code Status CODE 03/26/25 Transmitted 14:05 0.9% Ns 1000 Ml PHA 03/26/25 Transmitted 14:15 Hydrocodone-Acet PHA 03/26/25 Transmitted 5/325mg Tab ([place] 14:15 Ondansetron Hcl PHA 03/26/25 Transmitted (Zofran) 14:15 Fall Risk Precautions [facility] 03/26/[address] 14:05 Complete Blood Count LAB 03/27/25 Verified 04:00 Comprehensive LAB 03/27/25 Verified Metabolic Panel 04:00 Echo 2d Mode Cardiac US 03/26/25 Transmitted DOP 14:05 Condition: Fair [facility] 03/26/25 Transmitted 14:05 Acetaminophen Tablet PHA 03/26/25 Transmitted (Tylenol Tablet) 14:15 Morphine Sulfate PHA 03/26/25 Transmitted Injection 14:15 Nitroglycerin PHA 03/26/25 Transmitted Sublingual (Ntrostat 14:15 Morphine Sulfate PHA 03/26/25 Transmitted Injection 14:15 Stat Ekg For Chest [facility] 03/26/25 Transmitted Pain 14:05 Notify Md Of Changes [facility] 03/26/25 Transmitted From Base 14:05 Locket Maker For [facility] 03/26/25 Transmitted 24 Hours 14:05 Emergency Dysrhythmia [facility] 03/26/25 Transmitted Protocol 14:05 Rhythm Strips Once [facility] 03/26/25 Transmitted Every Shift 14:05 Oxygen By Nasal RT 03/26/25 Transmitted Cannula 14:05 * Cardiology Consult CONS 03/26/25 Transmitted 14:05 Date of Service: Mar 26, 2025 Billing Provider: CLINTON GARCIAP Common Visit Codes: [id number] INP/OBS CARE (HIGH) CLINTON GARCIA SHELL SORTER Mar 26, 2025 14:15
[2025-03-26] MEDS ORDERED: DEXTROSE (50%) 50ML SYRG IV PRN (14:45)
[2025-03-26] MEDS: AMIODARONE HCL 200 MG TAB PO SCH (14:52)
[2025-03-26] MEDS: SODIUM CHLORIDE 0.9% 1,000 ML IV SCH (14:53)
[2025-03-26 15:06] LABS: Magnesium 2.2 mg/dL (1.6-2.6)
[2025-03-26] MEDS: MAGNESIUM SULFATE 1GM/100ML 100 ML IV ONE (15:55)
[2025-03-26] MEDS: InsuLIN REG 1unit/0.01ml Soln (100units/ml) SC SCH (16:09)
[2025-03-26] MEDS: ACCU-CHEK COMFORT CURVE STRIP VI SCH (16:10)
[2025-03-26 19:40] VITALS: PULSE 52; RESP 18; O2SAT 98
--- NOTE | 2025-03-26 21:51 | DVHSR ---
APPROVED REPORT EXAM: Two-dimensional and M-mode echocardiogram with Doppler and color Doppler. Blood Pressure: 140/63 mmHg INDICATION AFIB with RVR RISK FACTORS Height: 63, Weight: 199 DIMENSIONS LVDd4.2 (3.8-5.7cm)LA (2D)4.4 (1.9-4.0cm)Aortic Root3.7 (2.0-3.7cm) LVDs2.7 (2.5-4.0cm)LA (MM) (1.9-4.0cm)Aortic Cusp Exc1.7 (1.5-2.0cm) EF (%) 67.0 (55-70%)Rt. Atrium3.3 (1.9-4.0cm)Asc. Aorta cm IVSd1.2 (0.7-1.1cm)RV (D) (1.8-2.4cm) PWd1.2 (0.7-1.1cm) Mitral Valve MitralMitral Stenosis E wave0.48m/sMV Mean GR.mmHg A wave0.78m/sMV Peak GR.mmHg E/A ratio0.62D MVAcm2 DECEL [id number] 1/2 [id number] IVRTmsDop MVA3.20cm2 Aortic Valve Aortic ValveAortic Stenosis V11.14m/Romana Mean GR.4mmHg V21.30m/Romana Peak GR.7mmHg LVOT Diameter1.7 (1.8-2.4cm)Doppler AVA1.99cm2 AI P 1/2 Iqgn337.46ms Pulmonic Valve V21.21m/s Tricuspid Valve TR Velocity1.86m/s [id number] Conclusion LV EF IS 67% AND IS NORMAL NORMAL RV FUNCTION AND SIZE MILD MVP NORMAL TV,PV AND AORTIC VALVE NO EFFUSION NORMAL RVSP AND IS 18 MM OF HG
[2025-03-26] MEDS: ENOXAPARIN SOD 100 MG/1 ML SYRINGE SC ONE (22:00)
[2025-03-26] MEDS: ATORVASTATIN 20 MG TAB PO SCH (22:00)
--- NOTE | 2025-03-26 23:43 | DVHINCON2 ---
Date of service: Mar 26, 2025 Referring Physician Alcon Reason for Consultation A-fib RVR History of Present Illness This is a 74-year-old female with a PMH of CA, A-Fib, HLD, DM who was brought in by EMS with complaints of chest pain since 0800 this morning. Patient states that her pain is localized to her right sternum, nonradiating, describes as heavy, and rates her pain a 7/10. Patient also states that she is feeling l ightheaded. Patient was found to be in A-Fib RVR on scene per EMS . EKG upon arrival to ED shows ST with rate of 140. Patient was started on amiodarone drip. Repeat 12 lead ECG showed conversion to normal sinus rhythm with right bundle- branch block. Chest x-ray showed NAD. Troponin is negative x2. BNP 112.44. Patient was admitted to the hospital. I am asked to consult on this patient. Past Medical History Stated in HPI Past Surgical History Cholecystectomy Family History: Cardiovascular disease G8 FATHER Allergies: Coded Allergies: Cephalexin (Verified Allergy, Unknown, 08/01/20) Home Meds Active Scripts Amiodarone HCl (Amiodarone HCl) 200 Mg Tab, 400 MG PO Q12HR for 30 Days, #120 TAB 1 Refill Take 400mg twice a day for 7 days, then 200mg twice a day thereafter. Prov:FLORENCIO GOMEZ DO 05/24/24 Reported Medications [[id number] Mg] (Atenolol) 25 MG TAB No Conflict Check, 25 MG PO DAILY 05/30/13 [Enalapril Malea20 Mg] (Enalapril Maleate) 20 MG TAB No Conflict Check, 20 MG PO DAILY 05/30/13 [Omeprazole Cap 20MG] No Conflict Check, 20 MG PO DAILY 05/30/13 Simvastatin (Simvastatin) 40 Mg Tab, 40 MG PO DAILY, 0 Refills 06/21/10 [Glimpeiride] No Conflict Check, 4 MG PO DAILY, 0 Refills 06/21/10 Metformin Hydrochloride (Fortamet) 1,000 Mg Tab, 1000 MG PO BID, 0 Refills 06/21/10 Current Medications Current Medications Medications (Trade) Dose Ordered Sig/Love Route PRN Reason Start Time Stop Time Status Last Admin Sodium Chloride 1,000 ml @ 60 mls/hr [id number] IV 03/26/25 14:15 03/26/25 14:53 Acetaminophen/ Hydrocodone Bitart ([place] 5/325MG Tab) 1 tab Q4HP PRN PO MODERATE PAIN (4-6 PAIN SCALE) 03/26/25 14:15 Ondansetron HCl (Zofran) 4 mg Q4HP PRN IV NAUSEA / VOMITING 03/26/25 14:15 Acetaminophen (Tylenol Tablet) 650 mg Q6HP PRN PO PAIN SCALE 1-3 OR TEMP>100.4 03/26/25 14:15 Morphine Sulfate 2 mg Q4HPRN PRN IV SEVERE PAIN (7-10 PAIN SCALE) 03/26/25 14:15 Nitroglycerin (Ntrostat Sublingual) 0.4 mg Q5MINP PRN SL FOR CHEST PAIN 03/26/25 14:15 Morphine Sulfate 2 mg Q30M PRN IV FOR CHEST PAIN 03/26/25 14:15 Amiodarone HCl (Cordarone Tablet) 400 mg Q12HR PO 03/26/25 14:30 03/26/25 14:52 Atenolol (Tenormin Tablet) 25 mg DAILY PO 03/27/25 10:00 Atorvastatin Calcium (Lipitor) 20 mg HS PO 03/26/25 22:00 Glimepiride (Amaryl Tablet) 4 mg DAILY@BREAKFAST PO 03/27/25 08:00 Omeprazole (Omeprazole/ Sodium Bicarbo 20-1680 Mg) 20 mg DAILY PO 03/27/25 10:00 Enoxaparin Sodium (Lovenox) 90 mg DAILY SC 03/27/25 10:00 Diagnostic Test (Pha) (Accu-Chek Comfort Curve T) 1 strip ACHS 03/26/25 17:00 03/26/25 16:10 Insulin Human Regular (InsuLIN R) ACHS SC 03/26/25 17:00 03/26/25 16:09 Dextrose 50 ml UD PRN IV Blood Sugar LESS THAN 60 03/26/25 14:45 Review of Systems Constitutional: Yes: Malaise; No: Fever, Chills, Sweats, Weakness, Other Eyes: No: Pain, Vision change, Conjunctivae inflammation, Eyelid inflammation, Other, Redness ENT: No: Ear pain, Ear discharge, Nose pain, Nose discharge, Nose congestion, Mouth pain, Mouth swelling, Throat pain, Throat swelling, Other Respiratory: Shortness of breath, SOB with excertion; No: Cough, Dry, Wheezing, Hemoptysis, Pleuritic Pain, Sputum, Wheezing, Other Cardiovascular: Chest Pain; No: Palpitations, Orthopnea, Paroxysmal Noc. Dyspnea, Edema, Lt Headedness, Other Gastrointestinal: No: Nausea, Vomiting, Abdominal Pain, Diarrhea, Constipation, Melena, Hematochezia, Other Genitourinary: No Dysuria, No Frequency, No Incontinence, No Hematuria, No Retention, No Other Musculoskeletal: No: other, neck pain, shoulder pain, arm pain, back pain, hand pain, leg pain, foot pain Skin: No: Rash, Lesions, Jaundice, Bruising, Other Neurological: No: Weakness, Numbness, Incoordination, Change in speech, Confusion, Seizures, Other Vital Signs Vital Signs Date Time Temp Pulse Resp B/P (MAP) Pulse Ox O2 Delivery O2 Flow Rate FiO2 03/26/25 19:54 98.2 52 17 138/68 (91) 94 98.2 03/26/25 09:30 Room Air* 0 21 Physical Exam GENERAL: Alert and oriented x 3. No acute distress. EYES: PERRL, EOMI. Anicteric. HENT: Moist mucous membranes. LUNGS: Clear to auscultation bilaterally. CARDIOVASCULAR: Regular rate and rhythm. ABDOMEN: Soft, non-tender and non-distended. EXTREMITIES: No edema. NEUROLOGIC: No focal neurological deficits. SKIN: Warm, dry. Labs/Diagnostic Data Labs Test 03/26/25 16:06 03/26/25 10:37 03/26/25 09:38 03/26/25 09:25 Range/Units POC Glucose 234 H 70-106 mg/dl Troponin I High Sensitivity 6 </=34 ng/L White Blood Count 6.7 4.4-10.8 10^3/uL Red Blood Count 4.51 4.0-5.20 10^6/uL Hemoglobin 13.8 12.2-16.2 g/dL Hematocrit 40.8 36.0-46.0 % Mean Corpuscular Volume 90.5 80.0-100.0 fL Mean Corpuscular Hemoglobin 30.7 28.0-32.0 pg Mean Corpuscular Hemoglobin Concent 33.9 32.0-36.0 g/dL Red Cell Distribution Width 13.8 11.8-14.3 % Platelet Count 234 140-450 10^3/uL Mean Platelet Volume 9.2 6.9-10.8 fL Neutrophils (%) (Auto) 69.2 37.0-80.0 % Lymphocytes (%) (Auto) 17.4 10.0-50.0 % Monocytes (%) (Auto) 8.8 0.0-12.0 % Eosinophils (%) (Auto) 2.6 0.0-7.0 % Basophils (%) (Auto) 2.0 0.0-2.0 % Neutrophils # (Auto) 4.6 1.6-8.6 10 ^3/uL Lymphocytes # (Auto) 1.2 0.4-5.4 10 ^3/uL Monocytes # (Auto) 0.6 0-1.3 10 ^3/uL Eosinophils # (Auto) 0.2 0-0.8 10 ^3/uL Basophils # (Auto) 0.1 0-0.2 10 ^3/uL Nucleated Red Blood Cells 0.1 % Sodium Level 141 136-145 mmol/L Potassium Level 4.5 3.5-5.1 mmol/L Chloride Level 108 H 98-107 mmol/L Carbon Dioxide Level 23 20-31 mmol/L Anion Gap 10 5-15 Blood Urea Nitrogen 35 H 9-23 mg/dL Creatinine 1.85 H 0.550-1.02 mg/dL Glomerular Filtration Rate Calc 28 >90 mL/min BUN/Creatinine Ratio 18.9 10.0-20.0 Serum Glucose 171 H 74-106 mg/dL Hemoglobin A1c 6.8 H <5.7 % A1C Calcium Level 9.8 8.7-10.4 mg/dL Magnesium Level 2.2 1.6-2.6 mg/dL B-Type Natriuretic Peptide 112.44 0-100 pg/mL Triglycerides Level 288 H < 150 mg/dL Cholesterol Level 237 H < 200 mg/dL LDL Cholesterol 150 H < 100 mg/dL HDL Cholesterol 44 40-59 mg/dL Thyroid Stimulating Hormone (TSH) 1.21 0.55-4.78 uIU/mL Urine Color Light-yellow Yellow Urine Clarity Clear Clear Urine pH 5.5 5.0-9.0 Urine Specific [place] 1.012 1.001-1.035 Urine Protein Negative Negative Urine Ketones Negative Negative Urine Blood Negative Negative /uL Urine Nitrite Negative Negative Urine Bilirubin Negative Negative Urine Urobilinogen Normal Negative mg/dL Urine Leukocyte Esterase Trace Negative /uL Urine RBC <1 0 - 4 /hpf Urine Microscopic WBC 2 0-5 /HPF Urine Squamous Epithelial Cells Few <5 /hpf Urine Bacteria None seen None Seen /hpf Urine Glucose Normal Normal mg/dL Assessment A fib with RVR. History of recent nuclear test with abnormal findings with Dr Beltran. 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 REHAN on CKD 4. Hypertension. Diabetes type 2. Hyperlipidemia. Obesity. Recent hospice revocation. Plan/Recommendation I agree with your ongoing assessment and care of plan. Telemetry reviewed. Echocardiogram. Morphine and [place] for pain management. Amiodarone. Atenolol. Lipitor. DVT prophylactics. Nitro SL. Additional plan as per the hospital course. A total of 45 minutes was spent reviewing the patient record, examining the patient, making a diagnostic and therapeutic plan, discussing this plan with medical personnel, following up on diagnostic studies and following the patient for clinical stability excluding any and all procedures. At least 50% of this time was spent in direct, [id number] contact. Plan discussed with: Patient RAGHAV TOBIAS MD Mar 26, 2025 21:42
[2025-03-26 23:49] VITALS: BP 123/57; PULSE 54; RESP 12; TEMP 97; O2SAT 94
[2025-03-27 01:00] VITALS: BP 115/58; PULSE 52; RESP 12; TEMP 97.7; O2SAT 90
[2025-03-27 05:00] VITALS: BP 124/61; PULSE 60; RESP 14; TEMP 97.6; O2SAT 95
[2025-03-27 06:43] LABS: Basophils # (auto) 0.1 10 ^3/uL (0-0.2); Basophils % (auto) 1.9 % (0.0-2.0); Eosinophils # (auto) 0.2 10 ^3/uL (0-0.8); Hemoglobin 12.4 g/dL (12.2-16.2); Lymphocytes # (auto) 1.5 10 ^3/uL (0.4-5.4); Lymphocytes % (auto) 25.7 % (10.0-50.0); Mean Corpuscular Hemoglobin 31.1 pg (28.0-32.0); Mean Corpuscular Hgb Conc. 34.3 g/dL (32.0-36.0); Mean Corpuscular Volume 90.8 fL (80.0-100.0); Monocytes # (auto) 0.7 10 ^3/uL (0-1.3); Monocytes % (auto) 11.3 % (0.0-12.0); Neutrophils # (auto) 3.4 10 ^3/uL (1.6-8.6); Neutrophils % (auto) 58.1 % (37.0-80.0); Nucleated Red Blood Cells % 0.1 %; Platelet Count (auto) 196 10^3/uL (140-450); Red Blood Cells 3.97 10^6/uL (4.0-5.20); White Blood Cell 5.8 10^3/uL (4.4-10.8)
[2025-03-27 06:57] LABS: Albumin 3.6 g/dL (3.2-4.8); Alkaline Phosphatase 54 U/L (46-116); Anion Gap 10 (5-15); Aspartate Aminotransferase 9 U/L (<34); Calcium 8.7 mg/dL (8.7-10.4); Carbon Dioxide 23 mmol/L (20-31); Potassium 4.1 mmol/L (3.5-5.1); Sodium 143 mmol/L (136-145)
[2025-03-27 06:58] LABS: Alanine Aminotransferase < 9 U/L (7-40); Bilirubin, Total 0.6 mg/dL (0.2-1.0); Blood Urea Nitrogen 35 mg/dL (9-23); Chloride 110 mmol/L (98-107); Glucose 117 mg/dL (74-106); Total Protein 5.4 g/dL (5.7-8.2)
[2025-03-27 08:00] VITALS: PULSE 56; PULSE 74; RESP 17; O2SAT 92
[2025-03-27] MEDS: GLIMEPIRIDE 2 MG TAB PO SCH (08:00)
[2025-03-27 08:58] VITALS: BP 124/55; PULSE 56; RESP 17; TEMP 97.5; O2SAT 92
[2025-03-27] MEDS ORDERED: ATENOLOL 25 MG TAB PO SCH (10:00)
[2025-03-27] MEDS ORDERED: OMEPRAZOLE-SOD BICARB 20 MG POWDER PO SCH (10:00)
[2025-03-27] MEDS: ENOXAPARIN SOD 100 MG/1 ML SYRINGE SC SCH (10:34)
[2025-03-27 13:00] VITALS: BP 127/55; PULSE 60; RESP 17; TEMP 98.4; O2SAT 92
[2025-03-27] MEDS ORDERED: AMIO200T33 PO (13:45)
--- NOTE | 2025-03-27 13:49 | DVHDS2 ---
Discharge Summary Date of Admission Mar 26, 2025 at 14:05 Date of Discharge: Mar 27, 2025 Admitting Diagnosis Atrial fibrillation with rapid ventricular rate Labs/Diagnostic Data: Laboratory Results Test 03/27/25 12:00 03/27/25 05:59 03/26/25 10:37 03/26/25 09:38 POC Glucose 95 mg/dl (70-106) White Blood Count 5.8 10^3/uL (4.4-10.8) Red Blood Count 3.97 10^6/uL (4.0-5.20) Hemoglobin 12.4 g/dL (12.2-16.2) Hematocrit 36.0 % (36.0-46.0) Mean Corpuscular Volume 90.8 fL (80.0-100.0) Mean Corpuscular Hemoglobin 31.1 pg (28.0-32.0) Mean Corpuscular Hemoglobin Concent 34.3 g/dL (32.0-36.0) Red Cell Distribution Width 14.0 % (11.8-14.3) Platelet Count 196 10^3/uL (140-450) Mean Platelet Volume 8.7 fL (6.9-10.8) Neutrophils (%) (Auto) 58.1 % (37.0-80.0) Lymphocytes (%) (Auto) 25.7 % (10.0-50.0) Monocytes (%) (Auto) 11.3 % (0.0-12.0) Eosinophils (%) (Auto) 3.0 % (0.0-7.0) Basophils (%) (Auto) 1.9 % (0.0-2.0) Neutrophils # (Auto) 3.4 10 ^3/uL (1.6-8.6) Lymphocytes # (Auto) 1.5 10 ^3/uL (0.4-5.4) Monocytes # (Auto) 0.7 10 ^3/uL (0-1.3) Eosinophils # (Auto) 0.2 10 ^3/uL (0-0.8) Basophils # (Auto) 0.1 10 ^3/uL (0-0.2) Nucleated Red Blood Cells 0.1 % Sodium Level 143 mmol/L (136-145) Potassium Level 4.1 mmol/L (3.5-5.1) Chloride Level 110 mmol/L (98-107) Carbon Dioxide Level 23 mmol/L (20-31) Anion Gap 10 (5-15) Blood Urea Nitrogen 35 mg/dL (9-23) Creatinine 1.67 mg/dL (0.550-1.02) Glomerular Filtration Rate Calc 32 mL/min (>90) BUN/Creatinine Ratio 21.0 (10.0-20.0) Serum Glucose 117 mg/dL (74-106) Calcium Level 8.7 mg/dL (8.7-10.4) Total Bilirubin 0.6 mg/dL (0.2-1.0) Aspartate Amino Transferase (AST) 9 U/L (<34) Alanine Aminotransferase (ALT) < 9 U/L (7-40) Alkaline Phosphatase 54 U/L (46-116) Total Protein 5.4 g/dL (5.7-8.2) Albumin 3.6 g/dL (3.2-4.8) Troponin I High Sensitivity 6 ng/L (</=34) Hemoglobin A1c 6.8 % A1C (<5.7) Magnesium Level 2.2 mg/dL (1.6-2.6) B-Type Natriuretic Peptide 112.44 pg/mL (0-100) Triglycerides Level 288 mg/dL (< 150) Cholesterol Level 237 mg/dL (< 200) LDL Cholesterol 150 mg/dL (< 100) HDL Cholesterol 44 mg/dL (40-59) Thyroid Stimulating Hormone (TSH) 1.21 uIU/mL (0.55-4.78) Test 03/26/25 09:25 Urine Color Light-yellow (Yellow) Urine Clarity Clear (Clear) Urine pH 5.5 (5.0-9.0) Urine Specific [place] 1.012 (1.001-1.035) Urine Protein Negative (Negative) Urine Ketones Negative (Negative) Urine Blood Negative /uL (Negative) Urine Nitrite Negative (Negative) Urine Bilirubin Negative (Negative) Urine Urobilinogen Normal mg/dL (Negative) Urine Leukocyte Esterase Trace /uL (Negative) Urine RBC <1 /hpf (0 - 4) Urine Microscopic WBC 2 /HPF (0-5) Urine Squamous Epithelial Cells Few /hpf (<5) Urine Bacteria None seen /hpf (None Seen) Urine Glucose Normal mg/dL (Normal) Other Laboratory Tests 03/27/25 05:59 Brief Hx & Hospital Course: History of Present Illness A 74-year-old female with past medical history of atrial fibrillation (?persistent vs paraoxymal), HFmrEF with LVEF 40-45%, (last documented in April 2024), hyperlipidemia, diabetes mellitus type 2, CAD, asthma, gout, hypertension, chronic kidney disease, and anemia presents to the emergency department with complaint of chest pain and palpitations that began earlier this morning while getting out of bed. The chest pain is described as a heavy, pressure like sensation localized to the mid chest, nonradiating and associated with shortness of breath and heart palpitations. In the ED, she was found to be in atrial fibrillation with rapid ventricular response and was started on amiodarone drip. Repeat 12 lead ECG showed conversion to normal sinus rhythm with right bundle-branch block. She reports being currently on a DOAC and Multaq. Additionally, she recently underwent a nuclear test with her line installer trolley, Dr. Beltran, which reportedly showed abnormal findings. Of note, she had a brief prior enrollment in hospice but is now designated as full code. Course of hospitalization: Patient converted to sinus rhythm after initiation of amiodarone drip. Echocardiogram was performed. Cardiology consultation was obtained. Patient is requesting to be discharged home. She does not want any further treatment while in the hospital at this time. Patient will be continue with Xarelto, as well as being given a prescription for amiodarone 200 mg p.o. daily. Patient was instructed to re-evaluate being on hospice given her current condition. Patient states that she already has disenrolled from hospice. She states she will follow up with her PCP, Dr. Garza in 1-2 weeks. Physical examination General: Alert and Oriented x3. No acute distress. Well-nourished. Eyes: EOMI. Anicteric. HENT: Moist mucous membranes. Lungs: Clear to auscultation bilaterally. No accessory muscle use. Cardiovascular: Regular rate and rhythm. No murmur. No JVD. Abdomen: Soft, non-tender and non-distended. No palpable masses. Extremities: No edema. Non-tender. Skin: No rashes or lesions. Warm. Neurologic: No focal neurological deficits. CN II-XII grossly intact, but not individually tested. Psychiatric: Cooperative. Appropriate mood and affect. Total time spent with patient discussing and formulating plan of care: 35 minutes. This medical document was created using an electronic medical record system with [employer] dictation system. Although this document has been carefully reviewed, there may still be some phonetic and typographical errors. These areas are purely typographical due to imperfections of the software programs, and do not reflect any compromise in the patient's medical care. Consults/Reason for consult Cardiology: Atrial fibrillation Condition at Discharge: Fair Final Diagnosis/Problems List Atrial Fibrillation with RVR Secondary diagnosis: Gout Obesity Primary hypertension Coronary artery disease Diabetes mellitus Discharge Disposition: Home Discharge Instruct/Medications Diet: Cardiac 2g Na,low cholest Activity: No Restrictions, As Tolerated Follow Up/Referral: PCP Dr. Garza in 1 to 2 weeks Medications: Continue Xarelto Amiodarone 200mg po daily 36 Discharge Statement: "Patient was advised to return to the ER or call 911 if any headaches, dizziness, shortness of breath, chest pain, abdominal pain, bleeding, fevers, or worsening of medical condition. Patient was counseled about treatment plan, medications, possible side effects, patientverbalized understanding. All questions were answered to the best of my ability. This discharge took greater then 30 minutes in planning, reviewing documentation, counseling the patient, and discussing with other team members." ASSESSMENT ASSESSMENT Assessment Atrial Fibrillation with RVR Date of Service: Mar 27, 2025 Billing Provider: REJI LOVE NP Common Visit Codes: 11280-VVL/OBS DISCH DAY >30min REJI LOVE NP Mar 27, 2025 13:49
--- NOTE | 2025-03-27 22:14 | DVHPN2 ---
Progress Note - Dictate Date Seen: Mar 27, 2025 Medical Necessity Reason Pt with a Central, PICC or Fol: No Subjective Patient was seen and evaluated in follow up. Echo shows an EF of 67%. Patient denies any cardiac symptoms. Patient is cardiac stable for discharge. Telemetry reviewed. vital signs Vital Sign Date Time Temp Pulse Resp B/P (MAP) Pulse Ox O2 Delivery O2 Flow Rate FiO2 03/27/25 13:00 98.4 60 17 127/55 (79) 92 98.4 03/27/25 08:00 Room Air* 0 21 Total Intake and Output 03/26/25 03/26/25 03/27/25 15:00 23:00 07:00 Intake Total 293.32 ml 340 ml 715.5 ml Balance 293.32 ml 340 ml 715.5 ml objective GENERAL: Alert and oriented x 3. No acute distress. EYES: PERRL, EOMI. Anicteric. HENT: Moist mucous membranes. LUNGS: Clear to auscultation bilaterally. CARDIOVASCULAR: Regular rate and rhythm. ABDOMEN: Soft, non-tender and non-distended. EXTREMITIES: No edema. NEUROLOGIC: No focal neurological deficits. SKIN: Warm, dry. laboratory and microbiology Laboratory Tests 03/27/25 05:59 Test 03/27/25 05:59 Range/Units Serum Glucose 117 H 74-106 mg/dL Problem List A fib with RVR. History of recent nuclear test with [facility] with [facility] REHAN on CKD 4. Hypertension. Diabetes type 2. Hyperlipidemia. Obesity. Recent hospice revocation. Assessment/Plan Continued all current supportive medical care. Morphine and [place] for pain management. Amiodarone. Atenolol. Lipitor. DVT prophylactics. Nitro SL. Additional plan as per the hospital course. Plan discussed with: Patient RAGHAV TOBIAS MD Mar 27, 2025 22:14
--- NOTE | 2025-03-28 09:53 | ECG ---
[facility] Test Date: 2025-03-26 Test Time: 14:09:14 Pat Name: LUH DAI Department: ER Room: 0283T Gender: F Clinical Laboratory Assistant: APRIL : 1950 Requested By: LINDSEY PEDRAZA Order Number: [id number] Reading MD: Measurements Intervals [place] Rate: 59 P: 50 WA: 152 QRS: -69 QRSD: 144 T: 34 QT: 456 QTc: 452 Interpretive Statements Sinus rhythm RBBB and LAFB Please click the below link to view image of tracing.
== END 2025-03-27 16:04 | disposition home or self-care (01) | DRG 308 ==
LOC: ER 08:56 → EDUNIT# 08:56 → EDBD 08:56 → OVERFLOW 14:05 → TELE-WESTW 23:13
PROVIDERS: ADMIT Nurse Practitioner Acute Care; ATTEND Nurse Practitioner Acute Care
DX: I48.91 Unspecified atrial fibrillation (principal); I50.23 Acute on chronic systolic (congestive) heart failure; I13.0 Hypertensive heart and chronic kidney disease with heart failure and stage 1 through stage 4 chronic kidney disease, or unspecified chronic kidney disease; N17.9 Acute kidney failure, unspecified; N18.4 Chronic kidney disease, stage 4 (severe); E78.5 Hyperlipidemia, unspecified; E66.9 Obesity, unspecified; E11.65 Type 2 diabetes mellitus with hyperglycemia; E11.22 Type 2 diabetes mellitus with diabetic chronic kidney disease; I25.10 Atherosclerotic heart disease of native coronary artery without angina pectoris; K21.9 Gastro-esophageal reflux disease without esophagitis; M10.9 Gout, unspecified; I45.10 Unspecified right bundle-branch block; J45.909 Unspecified asthma, uncomplicated; Z88.1 Allergy status to other antibiotic agents; Z79.84 Long term (current) use of oral hypoglycemic drugs; Z79.899 Other long term (current) drug therapy; Z83.3 Family history of diabetes mellitus; Z82.49 Family history of ischemic heart disease and other diseases of the circulatory system; Z90.49 Acquired absence of other specified parts of digestive tract; Z68.35 Body mass index [BMI] 35.0-35.9, adult
CPT/HCPCS: 36415; 71045; 80048; 80053; 80061; 81001; 82962; 83036; 83735; 83880; 84443; 84484; 85025; 87081; 93005; 93306; 96365; 99291; 99292; G0378; J1815

== ENCOUNTER 2025-09-09 00:23 | Emergency (ER) | payer OTHER ==
[~2025-09-09] VITALS: Ht 162.6 cm; Wt 90.7 kg
[~2025-09-09 00:23] MED LIST changes: +AMIO200T33 PO
--- NOTE | 2025-09-09 01:17 | ED.PDOC ---
SOB-HPI HPI Comments 75-year-old female who came to ER for flu-like symptoms. Patient states for the past 2 weeks she has been having flu-like symptoms, congestion, productive cough, shortness of breath, wheezing. No fever noted. Patient has already finished a course of antibiotics and cough medications, offered no relief. Chief Complaint: Flu Time Seen by MD: 01:16 Primary Care Provider: JERRYK Reviewed notes: Nurses Notes Information Source: Patient Mode of Arrival: EMS Severity: Moderate Past Medical History PAST MEDICAL HISTORY: AFIB, Anemia, Arthritis, Asthma, DM, GERD, Gout, High Lipids, HTN, [place] Surgical History: Cholecystectomy PROCESSING TECHNICIAN History: No Pertinent PROCESSING TECHNICIAN History Family History Family History: Family hx of DM, Family hx of heart fatuma, Family hx of HTN Social History Smoker: Non-Smoker Alcohol: Denies ETOH Use Drugs: Denies Drug Use Lives In: Home Constitutional: denies: chills, diaphoresis, fatigue, fever, malaise, sweats, weakness, others EENTM: reports: nose congestion; denies: blurred vision, double vision, ear bleeding, ear discharge, ear drainage, ear pain, ear ringing, eye pain, eye redness, hearing loss, mouth pain, mouth swelling, nasal discharge, nose bleeding, nose pain, photophobia, tearing, throat pain, throat swelling, voice changes, others Respiratory: reports: cough, SOB at rest, shortness of breath, wheezing; denies: hemoptysis, orthopnea, SOB with excertion, stridor, others Cardiovascular: denies: chest pain, dizzy spells, diaphoresis, Dyspnea on exertion, edema, irregular heart beat, left arm pain, lightheadedness, palpitations, PND, syncope, others Gastrointestinal: denies: abdomen distended, abdominal pain, blood streaked bowels, constipated, diarrhea, dysphagia, difficulty swallowing, hematemesis, melena, nausea, poor appetite, poor fluid intake, rectal bleeding, rectal pain, vomiting, others Genitourinary: denies: abnormal vagina bleeding, burning, dyspareunia, dysuria, flank pain, frequency, hematuria, incontinence, pain, , vagina discharge, urgency, others Neurological: denies: dizziness, fainting, headache, left sided numbness, left sided weakness, numbness, paresthesia, pre-existing deficit, right sided numbness, right sided weakness, seizure, speech problems, tingling, tremors, weakness, others Musculoskeletal: denies: back pain, gout, joint pain, joint swelling, muscle pain, muscle stiffness, neck pain, others Integumetry: denies: bruises, change in color, change in hair/nails, dryness, laceration, lesions, lumps, rash, wounds, others Allergic/Immunocompromised: denies: Difficulty Healing, Frequent Infections, Hi ves, Itching, others Hematologic/Lymphatic: denies: anemia, blood clots, easy bleeding, easy bruising, swollen glands, others Endocrine: denies: excessive hunger, excessive sweating, excessive thirst, excessive urination, flushing, intolerance to cold, intolerance to heat, unexplained weight gain, unexplained weight loss, others Psychiatric: denies: anxiety, bipolar disorder, depression, hopeless, panic disorder, schizophrenia, sleepless, suicidal, others Physical Exam General Appearance: No Apparent Distress, Normal HEENT: Normal ENT Inspection, Pharynx Normal, TMs Normal Neck: Full Range of Motion, Non-Tender, Normal, Normal Inspection Respiratory: Chest Non-Tender, Lungs Clear, No Accessory Muscle Use, No Respiratory Distress, Normal Breath Sounds Cardiovascular: No Edema, No JVD, No Murmur, No Gallop, Normal Peripheral P ulses, Regular Rate/Rhythm Breast Exam: Deferred Gastrointestinal: No Organomegaly, Non Tender, No Pulsatile Mass, Normal Bowel Sounds, Soft Genitalia: Deferred Pelvic: Deferred Rectal: Deferred Extremities: No calf tenderness, Normal capillary refill, Normal inspection, Normal range of motion, Non-tender, No pedal edema Musculoskeletal : Apperance: Normal Neurologic: Alert, disability insurance claim examiner II-XII nml as Tested, No Motor Deficits, Normal Affect, Normal Mood, No Sensory Deficits Cerebellar Function: Normal Reflexes: Normal Skin: Dry, Normal Color, Warm Lymphatic: No Adenopathy Was a procedure done? Was a procedure done?: No Differential Dx Differential Diagnosis: Asthma, Bronchitis, Pneumonia, Respiratory Distress, URI X-Ray, Labs, Meds, VS Vital Signs Date Time Temp Pulse Resp B/P (MAP) Pulse Ox O2 Delivery O2 Flow Rate FiO2 09/09/25 02:04 98.4 74 20 147/76 (99) 97 98.4 09/09/25 01:30 20 97 Room Air* 0 21 09/09/25 00:59 98.0 64 18 165/74 97 98.0 Lab Test 09/09/25 02:28 09/09/25 01:28 Range/Units Troponin I High Sensitivity 4 5 </=34 ng/L White Blood Count 13.9 H 4.4-10.8 10^3/uL Red Blood Count 4.54 4.0-5.20 10^6/uL Hemoglobin 13.2 12.2-16.2 g/dL Hematocrit 41.0 36.0-46.0 % Mean Corpuscular Volume 90.3 80.0-100.0 fL Mean Corpuscular Hemoglobin 29.1 28.0-32.0 pg Mean Corpuscular Hemoglobin Concent 32.2 32.0-36.0 g/dL Red Cell Distribution Width 14.9 H 11.8-14.3 % Platelet Count 231 140-450 10^3/uL Mean Platelet Volume 8.9 6.9-10.8 fL Neutrophils (%) (Auto) 65.8 37.0-80.0 % Lymphocytes (%) (Auto) 20.3 10.0-50.0 % Monocytes (%) (Auto) 11.1 0.0-12.0 % Eosinophils (%) (Auto) 1.6 0.0-7.0 % Basophils (%) (Auto) 1.2 0.0-2.0 % Neutrophils # (Auto) 9.2 H 1.6-8.6 10 ^3/uL Lymphocytes # (Auto) 2.8 0.4-5.4 10 ^3/uL Monocytes # (Auto) 1.5 H 0-1.3 10 ^3/uL Eosinophils # (Auto) 0.2 0-0.8 10 ^3/uL Basophils # (Auto) 0.2 0-0.2 10 ^3/uL Nucleated Red Blood Cells 0.0 % Sodium Level 145 136-145 mmol/L Potassium Level 4.2 3.5-5.1 mmol/L Chloride Level 107 98-107 mmol/L Carbon Dioxide Level 29 20-31 mmol/L Anion Gap 9 5-15 Blood Urea Nitrogen 50 H 9-23 mg/dL Creatinine 2.26 H 0.550-1.02 mg/dL Glomerular Filtration Rate Calc 22 >90 mL/min BUN/Creatinine Ratio 22.1 H 10.0-20.0 Serum Glucose 104 74-106 mg/dL Calcium Level 9.4 8.7-10.4 mg/dL Total Bilirubin 0.6 0.2-1.0 mg/dL Aspartate Amino Transferase (AST) 15 13-40 U/L Alanine Aminotransferase (ALT) 18 7-40 U/L Alkaline Phosphatase 82 46-116 U/L B-Type Natriuretic Peptide 24.16 0-100 pg/mL Total Protein 6.5 5.7-8.2 g/dL Albumin 4.2 3.2-4.8 g/dL Current Medications Medications (Trade) Dose Ordered Sig/Love Route Start Time Stop Time Status Last Admin Albuterol (Ventolin Medneb) 5 mg ONCE ONCE NEB 09/09/25 01:15 09/09/25 01:16 DC 09/09/25 01:30 Prednisone 40 mg ONCE ONCE PO 09/09/25 01:15 09/09/25 01:16 DC 09/09/25 02:03 Time of 1ST Reevaluation: 01:12 Reevaluation 1ST: Unchanged Patient Education/Counseling: Diagnosis, Treatment Family Education/Counseling: No Family Present SEPSIS Sepsis Screen Physician Orders Chest Portable (09/09/25 01:11) Electrocardigram (09/09/25 01:11) Vital Signs Date Time Temp Pulse Resp B/P (MAP) Pulse Ox O2 Delivery O2 Flow Rate FiO2 09/09/25 02:04 98.4 74 20 147/76 (99) 97 98.4 09/09/25 01:30 20 97 Room Air* 0 21 09/09/25 00:59 98.0 64 18 165/74 97 98.0 Laboratory Tests Test 09/09/25 01:28 White Blood Count 13.9 10^3/uL (4.4-10.8) H Departure 1 Departure Time of Disposition: 03:00 Impression: Primary Impression: URI (upper respiratory infection) Disposition: 01 HOME / SELF CARE / HOMELESS Condition: Stable e-Prescriptions Prednisone (Prednisone) 10 Mg [place] 10 MG PO BID for 5 Days, #10 PACK Prov: ASHLEY THAO MD 09/09/25 Azithromycin (Azithromycin) 500 Mg Tab 1 TAB PO DAILY for 5 Days, #5 TAB Prov: ASHLEY THAO MD 09/09/25 Albuterol Sulfate (Albuterol Sulfate) 0.083 % Neb 1 VIAL NEB Q4HPRN PRN, #50 VIAL Prov: ASHLEY THAO MD 09/09/25 Discharged With: Self Critical Care Note Critical Care Time?: No Stability Stability form required: No Heart Score Heart Score: Heart Score Response (Comments) Value History N/A 0 EKG N/A 0 Age N/A 0 Risk Factors N/A 0 Troponin N/A 0 Total 0 I personally scribed for ASHLEY THAO MD ([email or web address]) on 09/09/25 at 01:17. Electronically submitted by Dakota Aponte ([email or web address]). ASHLEY THAO MD Sep 09, 2025 01:17
[2025-09-09] MEDS: ALBUTEROL SULF 2.5 MG/0.5ML(0.5%) NEB SOLN NEB ONE (01:30)
[2025-09-09 01:43] LABS: Hematocrit 41.0 % (36.0-46.0); Hemoglobin 13.2 g/dL (12.2-16.2); Mean Corpuscular Hemoglobin 29.1 pg (28.0-32.0); Mean Corpuscular Volume 90.3 fL (80.0-100.0); Nucleated Red Blood Cells % 0.0 %
[2025-09-09] MEDS: predniSONE 20 MG TAB PO ONE (02:03)
[2025-09-09 02:04] VITALS: BP 147/76; PULSE 74; RESP 20; TEMP 98.4; O2SAT 97
[2025-09-09 02:05] LABS: Alanine Aminotransferase 18 U/L (7-40); Albumin 4.2 g/dL (3.2-4.8); Alkaline Phosphatase 82 U/L (46-116); Anion Gap 9 (5-15); BUN/Creatinine Ratio 22.1 (10.0-20.0); Bilirubin, Total 0.6 mg/dL (0.2-1.0); Calcium 9.4 mg/dL (8.7-10.4); Carbon Dioxide 29 mmol/L (20-31); Chloride 107 mmol/L (98-107); Glucose 104 mg/dL (74-106); Potassium 4.2 mmol/L (3.5-5.1); Sodium 145 mmol/L (136-145); Total Protein 6.5 g/dL (5.7-8.2)
[2025-09-09 02:08] LABS: Blood Urea Nitrogen 50 mg/dL (9-23)
--- NOTE | 2025-09-09 02:17 | DVH ---
CHEST RADIOGRAPH INDICATION: SOB TECHNIQUE: Single frontal view of the chest was obtained COMPARISON: XY CHEST PORTABLE on DOS: 03/26/25, XY CHEST PORTABLE on DOS: 05/23/24 FINDINGS: Lines and Tubes: None Lungs: Clear Pleura: No effusion. No pneumothorax. Cardiomediastinal contours: Unremarkable Bones: Unremarkable IMPRESSION: 1. No acute disease.
[2025-09-09] MEDS ORDERED: AZIT500T66 PO (02:41)
[2025-09-09] MEDS ORDERED: PRED1PAK9 PO (02:41)
[2025-09-09] MEDS ORDERED: ALBU0.084 NEB (02:41)
== END 2025-09-09 03:21 | disposition home or self-care (01) ==
LOC: EDBD 00:23 → EDUNIT# 00:23 → ER 00:23
DX: J06.9 Acute upper respiratory infection, unspecified (principal); I48.91 Unspecified atrial fibrillation; J45.909 Unspecified asthma, uncomplicated; E11.9 Type 2 diabetes mellitus without complications; I10 Essential (primary) hypertension; Z90.49 Acquired absence of other specified parts of digestive tract
CPT/HCPCS: 36415; 71045; 80053; 83880; 84484; 85025; 94640; 99284; J7512

== ENCOUNTER 2025-09-19 02:20 | Inpatient (IN) | payer OTHER ==
[~2025-09-19] VITALS: Ht 162.6 cm; Wt 95.3 kg
[~2025-09-19 02:20] MED LIST changes: +ALBU0.084 NEB; +AZIT500T66 PO; +PRED1PAK9 PO
--- NOTE | 2025-09-19 02:31 | ECG ---
[facility] Test Date: 2025-09-19 Test Time: 02:21:43 Pat Name: LUH DAI Department: [facility] ED Patient ID: [id number] Room: Gender: F Manager Application Development: renee : 1950 Requested By: EMERGENCY EMERGENCY Order Number: [id number] Reading MD: Measurements Intervals [place] Rate: 140 P: 0 ME: 0 QRS: -57 QRSD: 140 T: 34 QT: 336 QTc: 513 Interpretive Statements Atrial fibrillation Ventricular premature complex RBBB and LAFB Please click the below link to view image of tracing.
--- NOTE | 2025-09-19 03:24 | ED.PDOC ---
HPI Comments 75 year-old female, with a Hx of [place], Afib, and HTN, presents to the ED via EMS with a chief complaint of substernal chest pain as of 0030 this morning. Patient reports the chest pain is a 5/10, intermittent, non-radiating, described as "heavy", with associated symptoms of palpitations. Patient reports being admitted to [facility] recently for Bronchitis with cough. Patient has no further complaints otherwise. Patient denies symptoms of weakness, dizziness, SOB, or abdominal pain. REVIEW OF SYSTEMS: General: No fever, no chills, or fatigue HEENT: No sore throat, no earache, no congestion, no neck pain. Cardiac: + chest pain. No palpitations. Lungs: + shortness of breath, no cough. GI: No nausea, no vomiting, no diarrhea, no constipation, no abdominal pain : No dysuria, frequency, or urgency. No hematuria. Musculoskeletal: No joint pain , no joint swelling, no extremity edema. Skin: No rash, no itching. Neuro: No headache, no dizziness, no weakness (And as sated in HPI) PHYSICAL EXAM: General: Awake, alert and oriented. No acute distress. Skin: Skin in warm, dry and intact. Appropriate color for ethnicity. HEENT: The head is normocephalic and atraumatic. Conjunctivae are clear without exudates or hemorrhage. Sclera is non-icteric. Eyelids are normal in appearance without swelling or lesions. Oral mucosa is pink and moist Neck: The neck is supple with normal range of motion. No JVD. Cardiac: + Rapid rate/regular rhythm, irregular. No murmurs, gallops, or rubs are auscultated. Respiratory: No signs of respiratory distress. Lung sounds are clear in all lobes bilaterally without rales, rhonchi, or wheezes. Abdominal: Abdomen is soft, non-tender without distention, guarding or rigidity. Bowel sounds are present and normoactive in all four quadrants. Extremities: Lower extremities without edema. Neurological: The patient is awake, alert and oriented to person, place, and time with normal speech. Speech is clear. There is no facial asymmetry. Psychiatric: Appropriate mood and affect. Good judgement and insight. Chief Complaint: Chest Pain Time Seen by MD: 03:07 Primary Care Provider: UNK Reviewed Notes: Medications, Allergies Allergies: Coded Allergies: Cephalexin (Verified Allergy, Unknown, 08/01/20) Home Meds Active Scripts Prednisone (Prednisone) 10 Mg [place], 10 MG PO BID for 5 Days, #10 PACK Prov:ASHLEY THAO MD 09/09/25 Azithromycin (Azithromycin) 500 Mg Tab, 1 TAB PO DAILY for 5 Days, #5 TAB Prov:ASHLEY THAO MD 09/09/25 Albuterol Sulfate (Albuterol Sulfate) 0.083 % Neb, 1 VIAL NEB Q4HPRN PRN, #50 VIAL Prov:ASHLEY THAO MD 09/09/25 Amiodarone Hcl (Amiodarone Hcl) 200 Mg Tab, 1 TAB PO DAILY for 30 Days, #30 TAB 3 Refills Prov:REJI LOVE NP 03/27/25 Amiodarone HCl (Amiodarone HCl) 200 Mg Tab, 400 MG PO Q12HR for 30 Days, #120 TAB 1 Refill Take 400mg twice a day for 7 days, then 200mg twice a day thereafter. Prov:FLORENCIO GOMEZ DO 05/24/24 Reported Medications [Rrownvij15 Mg] (Atenolol) 25 MG TAB No Conflict Check, 25 MG PO DAILY 05/30/13 [Enalapril Malea20 Mg] (Enalapril Maleate) 20 MG TAB No Conflict Check, 20 MG PO DAILY 05/30/13 [Omeprazole Cap 20MG] No Conflict Check, 20 MG PO DAILY 05/30/13 Simvastatin (Simvastatin) 40 Mg Tab, 40 MG PO DAILY, 0 Refills 06/21/10 [Glimpeiride] No Conflict Check, 4 MG PO DAILY, 0 Refills 06/21/10 Metformin Hydrochloride (Fortamet) 1,000 Mg Tab, 1000 MG PO BID, 0 Refills 06/21/10 Information Source: Patient Mode of Arrival: EMS Severity: Moderate Timing: Hours Duration: Since onset Location: Substernal Radiation: No Radiation Quality: Heavy Associated Signs and Symptoms: Palpitations, Other (headache ) Past Medical History PAST MEDICAL HISTORY: AFIB, Anemia, Arthritis, Asthma, DM, GERD, Gout, High Lipids, HTN, [place] Surgical History: Cholecystectomy DIGITAL 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 Was a procedure done?: No CP Differential Dx Differential Diagnosis: A-fib, A-Flutter, Angina, Anxiety / Panic Attack Differential Diagnosis: CHF, HTN Essential Differential Diagnosis: Angina, Chest Wall Pain, Cholelithiasis, Gastritis, Pneumonia X-Ray, Labs, Meds, VS Vital Signs Date Time Temp Pulse Resp B/P (MAP) Pulse Ox O2 Delivery O2 Flow Rate FiO2 09/19/25 02:30 98.0 130 18 124/90 94 98.0 09/19/25 02:21 140 Time of 1ST Reevaluation: 03:41 Reevaluation 1ST: Unchanged Patient Education/Counseling: Diagnosis, Treatment, Need For Follow Up Family Education/Counseling: No Family Present SEPSIS Sepsis Screen Date sepsis recognized/suspect: Sep 19, 2025 Time Sepsis recognized/suspect: 0233 Recent Procedure: No On Antibiotic Therapy: No Respiratory Rate >20: No Heart Rate >90: Yes Temp<36 C (96.8 F) or >38.3 C: No SBP <90 or MAP <65 mmHG: No New Acute Mental Status Change: No Is the patient on CPAP, BIPAP,: No Physician Orders Electrocardigram (09/19/25 03:27) Electrocardigram (09/19/25 05:27) Vital Signs Date Time Temp Pulse Resp B/P (MAP) Pulse Ox O2 Delivery O2 Flow Rate FiO2 09/19/25 02:30 98.0 130 18 124/90 94 98.0 09/19/25 02:21 140 Critical Care Note Critical Care Time?: Yes (30 min-critical care time only) Stability Stability form required: No Heart Score Heart Score: Heart Score Response (Comments) Value History Moderate Suspicious 1 EKG Normal 0 Age >65 2 Risk Factors 1 or 2 risk factors 1 Troponin N/A 0 Total 4 I personally scribed for YARI VASQUES MD ([email or web address]) on 09/19/25 at 03:24. Electronically submitted by Vanessa BundyAJAX Street). YARI VASQUES MD Sep 19, 2025 03:24
[2025-09-19 03:27] LABS: Hematocrit 39.4 % (36.0-46.0); Hemoglobin 12.8 g/dL (12.2-16.2); Mean Corpuscular Hemoglobin 29.1 pg (28.0-32.0); Mean Corpuscular Volume 89.5 fL (80.0-100.0); Nucleated Red Blood Cells % 0.1 %
[2025-09-19 03:30] VITALS: RESP 15; O2SAT 97
[2025-09-19] MEDS: MORPHINE SULFATE INJ 2 MG/ml SYRG IV ONE (03:30)
[2025-09-19] MEDS: dilTIAZem 25 MG/5 ML VIAL IV ONE ×2 (03:35→05:02)
[2025-09-19 03:38] LABS: Anion Gap 5 (5-15); Carbon Dioxide 30 mmol/L (20-31); Chloride 106 mmol/L (98-107); Potassium 4.5 mmol/L (3.5-5.1); Sodium 141 mmol/L (136-145)
[2025-09-19 03:39] LABS: Calcium 9.4 mg/dL (8.7-10.4)
[2025-09-19 03:44] LABS: BUN/Creatinine Ratio 16.1 (10.0-20.0)
[2025-09-19 03:48] LABS: Blood Urea Nitrogen 29 mg/dL (9-23); Glucose 65 mg/dL (74-106)
[2025-09-19] MEDS: SODIUM CHLORIDE 0.9% 1,000 ML IV ONE (04:13)
--- NOTE | 2025-09-19 05:27 | DVH ---
CHEST RADIOGRAPH INDICATION: cp TECHNIQUE: Single frontal view of the chest was obtained COMPARISON: XY CHEST PORTABLE on DOS: 09/09/25, XY CHEST PORTABLE on DOS: 03/26/25, XY CHEST PORTABLE on DOS: 05/23/24 FINDINGS: Lines and Tubes: None Lungs: Mild diffuse increased prominence of the pulmonary vasculature. No evidence of focal consolidation. Pleura: No effusion. No pneumothorax. Cardiomediastinal contours: Unremarkable Bones: Unremarkable IMPRESSION: 1. Mild diffuse increased prominence of the pulmonary vasculature.
[2025-09-19] MEDS ORDERED: DEXTROSE (50%) 50ML SYRG IV PRN (06:30)
[2025-09-19] MEDS ORDERED: ONDANSETRON HCL 4 MG/2 ML VIAL IV PRN (06:30)
[2025-09-19] MEDS ORDERED: NITROGLYCERIN 0.4 MG SL TAB SL PRN (06:30)
--- NOTE | 2025-09-19 06:40 | DVHHP2 ---
Admitting Diagnosis: Afib with RVR History of Present Illness HPI 75 y.o. female with Afib, CAD, HTN, DM, obesity was brought to the ER c/o non- radiating substernal pressure-like chest pain with palpitations. In the ER her EKG showed Afib with RVR anf the the patient was given Diltiazem IV. Patient denied other symptoms. She informed that she recently had bronchitis. Home Meds Active Scripts Prednisone (Prednisone) 10 Mg [place], 10 MG PO BID for 5 Days, #10 PACK Prov:ASHLEY THAO MD 09/09/25 Azithromycin (Azithromycin) 500 Mg Tab, 1 TAB PO DAILY for 5 Days, #5 TAB Prov:ASHLEY THAO MD 09/09/25 Albuterol Sulfate (Albuterol Sulfate) 0.083 % Neb, 1 VIAL NEB Q4HPRN PRN, #50 VIAL Prov:ASHLEY THAO MD 09/09/25 Amiodarone Hcl (Amiodarone Hcl) 200 Mg Tab, 1 TAB PO DAILY for 30 Days, #30 TAB 3 Refills Prov:REJI LOVE MANAGER LOCAL 03/27/25 Amiodarone HCl (Amiodarone HCl) 200 Mg Tab, 400 MG PO Q12HR for 30 Days, #120 TAB 1 Refill Take 400mg twice a day for 7 days, then 200mg twice a day thereafter. Prov:FLORENCIO GOMEZ DO 05/24/24 Reported Medications [Gznbolus80 Mg] (Atenolol) 25 MG TAB No Conflict Check, 25 MG PO DAILY 05/30/13 [Enalapril Malea20 Mg] (Enalapril Maleate) 20 MG TAB No Conflict Check, 20 MG PO DAILY 05/30/13 [Omeprazole Cap 20MG] No Conflict Check, 20 MG PO DAILY 05/30/13 Simvastatin (Simvastatin) 40 Mg Tab, 40 MG PO DAILY, 0 Refills 06/21/10 [Glimpeiride] No Conflict Check, 4 MG PO DAILY, 0 Refills 06/21/10 Metformin Hydrochloride (Fortamet) 1,000 Mg Tab, 1000 MG PO BID, 0 Refills 06/21/10 Past Medical History Cardiac: AFIB, CAD, HTN, MD Endocrine: NIDDM Patient Family History: Cardiovascular disease G8 FATHER Review of Systems Cardiovascular: Chest Pain, Palpitations H&P Exam Vital Signs Vital Signs Date Time Temp Pulse Resp B/P (MAP) Pulse Ox O2 Delivery O2 Flow Rate FiO2 09/19/25 06:01 107/56 09/19/25 06:00 123 12 97 09/19/25 03:30 Nasal Cannula* 2 28 09/19/25 02:30 98.0 98.0 General Appeara: Obese Head Exam: Normal inspection Neck Exam: Normal inspection Eye Exam: bilateral eye PERRL, bilateral eye EOMI Pulmonary/Respiratory: Crackles Cardiovascular/Chest: Tachycardia Abdominal Exam: Normal bowel sounds Ankle Exam: bilateral ankle Swelling Neuro/Mental St: Alert, Oriented SEPSIS Sepsis Screen Date sepsis recognized/suspect: Sep 19, 2025 Time Sepsis recognized/suspect: 329 Recent Procedure: No On Antibiotic Therapy: No Respiratory Rate >20: No Heart Rate >90: Yes Temp<36 C (96.8 F) or >38.3 C: No SBP <90 or MAP <65 mmHG: No New Acute Mental Status Change: No Is the patient on CPAP, BIPAP,: No Physician Orders Electrocardigram (09/19/25 03:27) Electrocardigram (09/19/25 05:27) Chest Xray 1 View (09/19/25 03:18) Vital Signs Q1HR (09/19/25 03:18) Saline Lock (09/19/25 03:18) Chief Librarian Branch (09/19/25 ) Diltiazem 125mg/125ml Bag Kit (Cardizem) (09/19/25 04:45) Troponin-I Hs (09/19/25 06:22) Troponin-I Hs (09/19/25 08:22) Admit (09/19/25 06:22) * Cardiology Consult (09/19/25 06:22) Complete Blood Count (09/20/25 06:00) Comprehensive Metabolic Panel (09/20/25 06:00) Echo 2d Mode Cardiac Dop (09/19/25 06:22) Nitroglycerin Sublingual (Ntrostat Subli (09/19/25 06:30) Morphine Sulfate Injection (09/19/25 06:30) Stat Ekg For Chest Pain (09/19/25 06:22) Notify Of Changes From Base (09/19/25 06:22) Circuit Breaker Mechanic For 24 Hours (09/19/25 06:22) Emergency Dysrhythmia Protocol (09/19/25 06:22) Rhythm Strips Once Every Shift (09/19/25 06:22) Oxygen By Nasal Cannula (09/19/25 06:22) Ondansetron Hcl (Zofran) (09/19/25 06:30) Morphine Sulfate Injection (09/19/25 06:30) Glucose Blood (Accu-Chek Comfort Curve T (09/19/25 07:00) Mild Sliding Scale (09/19/25 07:00) Dextrose 50% Syringe (09/19/25 06:30) Vital Signs Date Time Temp Pulse Resp B/P (MAP) Pulse Ox O2 Delivery O2 Flow Rate FiO2 09/19/25 06:01 107/56 09/19/25 06:00 123 12 107/56 (73) 97 09/19/25 05:10 93 15 97 09/19/25 05:05 131 14 106/49 (68) 98 09/19/25 04:00 92 12 107/55 (72) 97 09/19/25 03:30 15 97 Nasal Cannula* 2 28 09/19/25 03:24 140 09/19/25 03:06 137 15 128/108 (115) 91 09/19/25 02:30 98.0 130 18 124/90 94 98.0 09/19/25 02:21 140 Laboratory Tests Test 09/19/25 02:30 White Blood Count 10.1 10^3/uL (4.4-10.8) Medications Medications Dose Ordered Sig/Love Route Start Time Stop Time Status Last Admin Dose Admin Diltiazem HCl 10 mg ONCE ONCE IV 09/19/25 04:45 09/19/25 04:46 DC 09/19/25 05:02 10 MG Diltiazem HCl 15 mg ONCE ONCE IV 09/19/25 03:30 09/19/25 03:32 DC 09/19/25 03:35 15 MG Diltiazem HCl 125 ml @ 5 mls/hr Q24H ONCE IV 09/19/25 04:45 09/20/25 04:44 09/19/25 06:01 5 MLS/HR Sodium Chloride 1,000 ml @ 1,000 mls/hr Q1H ONCE IV 09/19/25 04:15 09/19/25 05:14 DC 09/19/25 04:13 1,000 MLS/HR Labs/Xrays Labs Test 09/19/25 05:42 09/19/25 02:30 Range/Units Troponin I High Sensitivity 34 </=34 ng/L White Blood Count 10.1 4.4-10.8 10^3/uL Red Blood Count 4.40 4.0-5.20 10^6/uL Hemoglobin 12.8 12.2-16.2 g/dL Hematocrit 39.4 36.0-46.0 % Mean Corpuscular Volume 89.5 80.0-100.0 fL Mean Corpuscular Hemoglobin 29.1 28.0-32.0 pg Mean Corpuscular Hemoglobin Concent 32.5 32.0-36.0 g/dL Red Cell Distribution Width 14.7 H 11.8-14.3 % Platelet Count 158 140-450 10^3/uL Mean Platelet Volume 9.4 6.9-10.8 fL Neutrophils (%) (Auto) 57.0 37.0-80.0 % Lymphocytes (%) (Auto) 25.1 10.0-50.0 % Monocytes (%) (Auto) 13.9 H 0.0-12.0 % Eosinophils (%) (Auto) 3.2 0.0-7.0 % Basophils (%) (Auto) 0.8 0.0-2.0 % Neutrophils # (Auto) 5.8 1.6-8.6 10 ^3/uL Lymphocytes # (Auto) 2.5 0.4-5.4 10 ^3/uL Monocytes # (Auto) 1.4 H 0-1.3 10 ^3/uL Eosinophils # (Auto) 0.3 0-0.8 10 ^3/uL Basophils # (Auto) 0.1 0-0.2 10 ^3/uL Nucleated Red Blood Cells 0.1 % Sodium Level 141 136-145 mmol/L Potassium Level 4.5 3.5-5.1 mmol/L Chloride Level 106 98-107 mmol/L Carbon Dioxide Level 30 20-31 mmol/L Anion Gap 5 5-15 Blood Urea Nitrogen 29 H 9-23 mg/dL Creatinine 1.80 H 0.550-1.02 mg/dL Glomerular Filtration Rate Calc 29 >90 mL/min BUN/Creatinine Ratio 16.1 10.0-20.0 Serum Glucose 65 L 74-106 mg/dL Calcium Level 9.4 8.7-10.4 mg/dL B-Type Natriuretic Peptide 54.63 0-100 pg/mL Assessment/Plan Problem List: (1) Atrial fibrillation with RVR 2' Diagnosis/Co-morbidities CAD, HTN, DM Plan discussed with: Patient JHON NEWSOME MD Sep 19, 2025 06:40
[2025-09-19] MEDS ORDERED: MORPHINE SULFATE 4 MG/ML SYR/VIAL IV PRN ×2 (06:45)
[2025-09-19] MEDS: ACCU-CHEK COMFORT CURVE STRIP VI SCH (06:55)
[2025-09-19] MEDS: InsuLIN REG 1unit/0.01ml Soln (100units/ml) SC SCH (07:00)
[2025-09-19] MEDS: FUROSEMIDE 20 MG/2 ML VIAL IV ONE (07:04)
[2025-09-19 07:15] VITALS: PULSE 106; RESP 13; O2SAT 97
[2025-09-19] MEDS: AMIODARONE BOLUS KIT 100 ML IV ONE (07:46)
--- NOTE | 2025-09-19 08:28 | DVHDS2 ---
New Physician D'charge PN Admitting Diagnosis Admitting Diagnosis afib rvr Discharge Diagnosis afib rvr, now converted to NSR Operations or Procedures none Reason(s) For Hospitalization Surgery Hospital Course 75 F who comes to ER for chest pain and palpitations. When she arrived EKG showed afib RVR HR 140s. She has known hx of afib and takes PO amio and xarelto at home already. She was admitted and started on cardizem gtt in the ER. She now converted to sinus rhythm confirmed on EKG. She has no chest pain and first two troponin were negative with the third troponin being mildly elevated at 37 in the setting of afib RVR. Her CBC was nml and chem panel showed a Cr of 1.8 which is her baseline and GFR was 29 also her baseline and otherwise nml electrolytes. PBNP was 54 and nml. Her CXR showed no infiltrate. She will be discharged home and will resume her home PO meds for afib as she normally does. [facility] to arrange for outpt PCP and cardio follow up. Treatment Plan Discharge Condition of Discharge Good Disposition Home Discharge Instructions Diet: Cardiac 2g Na,low cholest Activity: No Restrictions, As Tolerated Medications: see med sheet Follow Up Care Follow Up/Referral: pcp cardio Discharge Statement: "Patient was advised to return to the ER or call 911 if any headaches, dizziness, shortness of breath, chest pain, abdominal pain, bleeding, fevers, or worsening of medical condition. Patient was counseled about treatment plan, medications, possible side effects, patientverbalized understanding. All questions were answered to the best of my ability. This discharge took greater then 30 minutes in planning, reviewing documentation, counseling the patient, and discussing with other team members." OMAR CAMACHO MD Sep 19, 2025 08:28
[2025-09-19] MEDS: ACETAMINOPHEN 325 MG TAB PO ONE (08:35)
[2025-09-19 10:00] VITALS: BP 98/46; PULSE 48; RESP 14; TEMP 98; O2SAT 98
[2025-09-19] MEDS: ENOXAPARIN SOD 100 MG/1 ML SYRINGE SC SCH (10:00)
--- NOTE | 2025-09-19 18:04 | DVHINCON2 ---
Date of service: Sep 19, 2025 Referring Physician Phil Reason for Consultation A Fib with RVR History of Present Illness This is a 75 year-old female with a PMH of [place], Afib, and HTN who was brought in by EMS with complaints of substernal chest pain as of 0030 this morning. Patient reports the chest pain is a 5/10, intermittent, non-radiating, described as "heavy", with associated symptoms of palpitations. Patient reports being recently admitted to [facility] for Bronchitis with cough. BUN 29, FABRIC SOURCER 1.80, TROP 10 > 34 > 37. EKG shows A Fib at 140. Chest x-ray shows mild diffuse increased prominence of the pulmonary vasculature. Patient was admitted to the hospital. I am asked to consult on this patient. Family History: Cardiovascular disease G8 FATHER Allergies: Coded Allergies: Cephalexin (Verified Allergy, Unknown, 08/01/20) Home Meds Active Scripts Prednisone (Prednisone) 10 Mg [place], 10 MG PO BID for 5 Days, #10 PACK Prov:ASHLEY THAO MD 09/09/25 Azithromycin (Azithromycin) 500 Mg Tab, 1 TAB PO DAILY for 5 Days, #5 TAB Prov:ASHLEY THAO MD 09/09/25 Albuterol Sulfate (Albuterol Sulfate) 0.083 % Neb, 1 VIAL NEB Q4HPRN PRN, #50 VIAL Prov:ASHLEY THAO MD 09/09/25 Amiodarone Hcl (Amiodarone Hcl) 200 Mg Tab, 1 TAB PO DAILY for 30 Days, #30 TAB 3 Refills Prov:REJI LOVE [employer] 03/27/25 Amiodarone HCl (Amiodarone HCl) 200 Mg Tab, 400 MG PO Q12HR for 30 Days, #120 TAB 1 Refill Take 400mg twice a day for 7 days, then 200mg twice a day thereafter. Prov:FLORENCIO GOMEZ DO 05/24/24 Reported Medications [Lyixnnbg67 Mg] (Atenolol) 25 MG TAB No Conflict Check, 25 MG PO DAILY 05/30/13 [Enalapril Malea20 Mg] (Enalapril Maleate) 20 MG TAB No Conflict Check, 20 MG PO DAILY 05/30/13 [Omeprazole Cap 20MG] No Conflict Check, 20 MG PO DAILY 05/30/13 Simvastatin (Simvastatin) 40 Mg Tab, 40 MG PO DAILY, 0 Refills 06/21/10 [Glimpeiride] No Conflict Check, 4 MG PO DAILY, 0 Refills 06/21/10 Metformin Hydrochloride (Fortamet) 1,000 Mg Tab, 1000 MG PO BID, 0 Refills 06/21/10 Current Medications Current Medications Medications (Trade) Dose Ordered Sig/Love Route PRN Reason Start Time Stop Time Status Last Admin Nitroglycerin (Ntrostat Sublingual) 0.4 mg Q5MINP PRN SL FOR CHEST PAIN 09/19/25 06:30 Morphine Sulfate 2 mg Q30M PRN IV FOR CHEST PAIN 09/19/25 06:45 Ondansetron HCl (Zofran) 4 mg Q6HPRN PRN IV NAUSEA / VOMITING 09/19/25 06:30 Morphine Sulfate 1 mg Q4HPRN PRN IV SEVERE PAIN (7-10 PAIN SCALE) 09/19/25 06:45 Diagnostic Test (Pha) (Accu-Chek Comfort Curve T) 1 strip ACHS 09/19/25 07:00 09/19/25 06:55 Insulin Human Regular (InsuLIN R) ACHS SC 09/19/25 07:00 09/19/25 07:00 Dextrose 50 ml UD PRN IV Blood Sugar LESS THAN 60 09/19/25 06:30 Amiodarone HCl 250 ml @ 16.66 mls/ hr Q15H1M IV 09/19/25 13:00 09/19/25 08:32 DC Enoxaparin Sodium (Lovenox) 100 mg Q12HR SC 09/19/25 10:00 Review of Systems General: No fever, no chills, or fatigue HEENT: No sore throat, no earache, no congestion, no neck pain. Cardiac: + chest pain. No palpitations. Lungs: + shortness of breath, no cough. GI: No nausea, no vomiting, no diarrhea, no constipation, no abdominal pain : No dysuria, frequency, or urgency. No hematuria. Musculoskeletal: No joint pain , no joint swelling, no extremity edema. Skin: No rash, no itching. Neuro: No headache, no dizziness, no weakness (And as sated in HPI) Vital Signs Vital Signs Date Time Temp Pulse Resp B/P (MAP) Pulse Ox O2 Delivery O2 Flow Rate FiO2 09/19/25 10:00 98.0 48 14 98/46 (63) 98 98.0 09/19/25 07:15 Nasal Cannula* 2 28 Physical Exam GENERAL: Alert and oriented x 3. No acute distress. Obese. EYES: PERRL, EOMI. Anicteric. HENT: Moist mucous membranes. LUNGS: Clear to auscultation bilaterally. CARDIOVASCULAR: Irregular rate and rhythm. ABDOMEN: Soft, nontender and nondistended. EXTREMITIES: No edema. NEUROLOGIC: No focal neurological deficits. SKIN: Warm, dry. Labs/Diagnostic Data Labs Test 09/19/25 06:52 09/19/25 02:30 Range/Units Troponin I High Sensitivity 37 *H </=34 ng/L White Blood Count 10.1 4.4-10.8 10^3/uL Red Blood Count 4.40 4.0-5.20 10^6/uL Hemoglobin 12.8 12.2-16.2 g/dL Hematocrit 39.4 36.0-46.0 % Mean Corpuscular Volume 89.5 80.0-100.0 fL Mean Corpuscular Hemoglobin 29.1 28.0-32.0 pg Mean Corpuscular Hemoglobin Concent 32.5 32.0-36.0 g/dL Red Cell Distribution Width 14.7 H 11.8-14.3 % Platelet Count 158 140-450 10^3/uL Mean Platelet Volume 9.4 6.9-10.8 fL Neutrophils (%) (Auto) 57.0 37.0-80.0 % Lymphocytes (%) (Auto) 25.1 10.0-50.0 % Monocytes (%) (Auto) 13.9 H 0.0-12.0 % Eosinophils (%) (Auto) 3.2 0.0-7.0 % Basophils (%) (Auto) 0.8 0.0-2.0 % Neutrophils # (Auto) 5.8 1.6-8.6 10 ^3/uL Lymphocytes # (Auto) 2.5 0.4-5.4 10 ^3/uL Monocytes # (Auto) 1.4 H 0-1.3 10 ^3/uL Eosinophils # (Auto) 0.3 0-0.8 10 ^3/uL Basophils # (Auto) 0.1 0-0.2 10 ^3/uL Nucleated Red Blood Cells 0.1 % Sodium Level 141 136-145 mmol/L Potassium Level 4.5 3.5-5.1 mmol/L Chloride Level 106 98-107 mmol/L Carbon Dioxide Level 30 20-31 mmol/L Anion Gap 5 5-15 Blood Urea Nitrogen 29 H 9-23 mg/dL Creatinine 1.80 H 0.550-1.02 mg/dL Glomerular Filtration Rate Calc 29 >90 mL/min BUN/Creatinine Ratio 16.1 10.0-20.0 Serum Glucose 65 L 74-106 mg/dL Calcium Level 9.4 8.7-10.4 mg/dL B-Type Natriuretic Peptide 54.63 0-100 pg/mL Assessment Atrial fibrillation with RVR. CAD. HTN. DM. Plan/Recommendation I agree with your ongoing assessment and care of plan. Echocardiogram. Amiodarone. DVT prophylactics. Morphine for pain management. Nitro SL. Additional plan as per the hospital course. A total of 45 minutes was spent reviewing the patient record, examining the patient, making a diagnostic and therapeutic plan, discussing this plan with medical personnel, following up on diagnostic studies and following the patient for clinical stability excluding any and all procedures. At least 50% of this ti me was spent in direct, [id number] contact. Plan discussed with: Patient RAGHAV TOBIAS MD Sep 19, 2025 10:48
== END 2025-09-19 10:34 | disposition home or self-care (01) | DRG 310 ==
LOC: EDBD 02:20 → ER 02:20 → OVERFLOW 06:22
PROVIDERS: ADMIT Internal Medicine; ATTEND Internal Medicine
DX: I48.91 Unspecified atrial fibrillation (principal); E11.9 Type 2 diabetes mellitus without complications; I10 Essential (primary) hypertension; J45.909 Unspecified asthma, uncomplicated; E66.9 Obesity, unspecified; I25.10 Atherosclerotic heart disease of native coronary artery without angina pectoris; K21.9 Gastro-esophageal reflux disease without esophagitis; M10.9 Gout, unspecified; Z79.2 Long term (current) use of antibiotics; Z79.899 Other long term (current) drug therapy; Z90.49 Acquired absence of other specified parts of digestive tract; Z82.49 Family history of ischemic heart disease and other diseases of the circulatory system; Z83.3 Family history of diabetes mellitus; Z79.84 Long term (current) use of oral hypoglycemic drugs; Z68.36 Body mass index [BMI] 36.0-36.9, adult
CPT/HCPCS: 36415; 71045; 80048; 82962; 83880; 84484; 85025; 93005; 96361; 96372; 96374; 96376; 99291; G0378; J1815